=== PATIENT | female | born 1955 | race Caucasian/White ===

== ENCOUNTER 2020-07-29 15:33 | Outpatient (REF) | payer OTHER, SELFPAY ==
--- NOTE | ~2020-07-29 | US_ITS ---
EXAMINATION: US THYROID CLINICAL INFORMATION: Nontoxic single thyroid nodule. COMPARISON: Ultrasound soft tissue head/neck thyroid dated 01/03/2016 and 11/10/2013. TECHNIQUE: Linear transducer grayscale and color Doppler examination with attention to the region of the thyroid. FINDINGS: SIZE: Measurements of the thyroid lobes and nodules are given in sagittal, anteroposterior and transverse dimensions respectively. Right Thyroid Lobe: 4.4 x 1.6 x 1.5 cm, volume 5.6 mL. Previously 4.2 x 1.4 x 1.5 cm, volume 4.4 mL. Parenchyma: The gland echotexture is heterogeneous. Thyroid vascularity is increased. Left Thyroid Lobe: 4.9 x 2.0 x 1.4 cm, volume 7.0 mL. Previously 4.4 x 1.7 x 1.3 cm, volume 5.3 mL. Parenchyma: The gland echotexture is heterogeneous. Thyroid vascularity is increased. Isthmus: 0.2 cm in maximum AP dimension. Previously 0.2 cm. Estimated total number of nodules greater than or equal to 1 cm: 0. Rejoiner nodules are described as follows: 1. Location: Left mid. Size: 0.6 x 0.6 x 0.4 cm, volume 0.08 mL. Previously: 0.6 x 0.6 x 0.6 cm, volume 0.11 mL. Nodule characteristics: Composition: Cannot be determined (2). Echogenicity: Cannot be determined (1). Shape: Not taller than wide (0). Margins: Smooth (0). Echogenic Foci: Macrocalcifications (1). ACR TI-RADS total points: 4 ACR TI-RADS category: 4 Change in size: no significant change. ACR TI-RADS category: no change. 2. Location: Left mid. Size: 0.5 x 0.6 x 0.6 cm, volume 0.09 mL. Previously: Not seen on the prior study. Nodule characteristics: Composition: Solid/almost completely solid (2). Echogenicity: Isoechoic (1). Shape: Not taller than wide (0). Margins: Smooth (0). Echogenic Foci: None (0). ACR TI-RADS total points: 3 ACR TI-RADS category: 3 NODES: No lymphadenopathy is seen in the tissue surrounding the thyroid gland. US/US thyroid IMPRESSION: 1. Symmetric increased vascularity thyroid parenchyma. 2. Left: Stable nodule with macrocalcification 0.6 cm. New isoechoic nodule 0.6 cm. 3. Right: No nodularity. 4. ACR TI-RADS 4 ACR TI-RADS RECOMMENDATION REFERENCE: Ultrasound-guided fine-needle aspiration, followup ultrasound, no further follow up. * TR1 (0 point) and TR 2 (2 points): No FNA or follow up * TR3 (3 points): FNA if more than or equal to 2.5 cm in maximum dimension, followup ultrasound in 1, 3 and 5 years if 1.5 to 2.4 cm in maximum dimension. * TR4 (4-6 points): FNA if more than or equal to 1.5 cm in maximum dimension, followup ultrasound in 1, 2, 3 and 5 years if 1 to 1.4 cm in maximum dimension. * TR5 (more than or equal to 7 points): FNA if more than or equal to 1 cm in maximum dimension, followup ultrasound every year for 5 years if 0.5 to 0.9 cm in maximum dimension. * TR3, TR4 or TR5 nodules that are below the size threshold for follow up receive no follow up.
== END 2020-07-29 15:34 | disposition home or self-care (01) ==
LOC: HO.HMGCX 15:33
PROVIDERS: Visit Provider Internal Medicine
DX: E04.1 Nontoxic single thyroid nodule (principal)
CPT/HCPCS: 76536

== ENCOUNTER 2021-05-16 10:04 | Outpatient (REF) | payer OTHER, SELFPAY ==
--- NOTE | ~2021-05-16 | US_ITS ---
EXAMINATION: US THYROID CLINICAL INFORMATION: Nontoxic single thyroid nodule. COMPARISON: Ultrasound thyroid 07/29/2020 and 01/03/2016. TECHNIQUE: Linear transducer grayscale and color Doppler examination with attention to the region of the thyroid. FINDINGS: SIZE: Measurements of the thyroid lobes and nodules are given in sagittal, anteroposterior and transverse dimensions respectively. Right Thyroid Lobe: 4.38 x 1.62 x 1.49 cm, volume 5.55 mL. Previously 4.42 x 1.63 x 1.47 cm, volume 5.55 mL. Parenchyma: The gland echotexture is heterogeneous. Thyroid vascularity is increased. Left Thyroid Lobe: 4.59 x 2.00 x 1.78 cm, volume 8.57 mL. Previously 4.85 x 1.95 x 1.41 cm, volume 6.97 mL. Parenchyma: The gland echotexture is heterogeneous. Thyroid vascularity is increased. Isthmus: 0.13 cm in maximum AP dimension. Previously 0.18 cm. Estimated total number of nodules greater than or equal to 1 cm: 0. [employer] nodules are described as follows: 1. Location: Right superior. Size: 0.50 x 0.40 x 0.37 cm, volume 0.04 mL. Previously: cm, volume mL. Nodule characteristics: Composition: Cannot be determined (2). Echogenicity: Hyperechoic (1). Shape: Not taller than wide (0). Margins: Smooth (0). Echogenic Foci: None (0). ACR TI-RADS total points: 3 Previous: N/A ACR TI-RADS category: 3 Previous: N/A Significant change in size (>/= 20% in 2 dimensions and minimal increase of 2 mm or 50% or greater increase in volume): Change in features: Change in ACR TI-RADS risk category: N/A 2. Location: Left superior. Size: 0.54 x 0.45 x 0.53 cm, volume 0.07 mL. Previously: 0.60 x 0.60 x 0.40 cm, volume 0.08 mL. Nodule characteristics: Composition: Cannot be determined (2). Echogenicity: Cannot be determined (1). Shape: Not taller than wide (0). Margins: Smooth (0). Echogenic Foci: Peripheral calcifications (2). ACR TI-RADS total points: 5 Previous: 4 ACR TI-RADS category: 4 Previous: 4 Significant change in size (>/= 20% in 2 dimensions and minimal increase of 2 mm or 50% or greater increase in volume): Change in features: Change in ACR TI-RADS risk category: No 3. Location: Left mid. Size: 0.30 x 0.24 x 0.20 cm, volume 0.01 mL. Not seen previously. Nodule characteristics: Composition: Cystic(0). ACR TI-RADS total points: 0 ACR TI-RADS category: 1 4. Location: Left mid. Size: 0.82 x 0.49 x 0.58 cm, volume 0.12 mL. Not seen previously. Nodule characteristics: Composition: Spongiform (0). Echogenicity: Anechoic (0). Shape: Not taller than wide (0). Margins: Smooth (0). Echogenic Foci: None (0). ACR TI-RADS total points: 0 ACR TI-RADS category: 1 NODES: No lymphadenopathy is seen in the tissue surrounding the thyroid gland. US/US thyroid IMPRESSION: Heterogeneous hypervascular thyroid gland suggestive of thyroiditis or Graves' disease. There is mixed appearance of thyroid nodules with several new thyroid nodules seen and 1 previously identified thyroid nodule not seen. There is a stable small calcified nodule in the superior left lobe. ACR TI-RADS RECOMMENDATION REFERENCE: Ultrasound-guided fine-needle aspiration, followup ultrasound, no further follow up. * TR1 (0 point) and TR 2 (2 points): No FNA or follow up * TR3 (3 points): FNA if more than or equal to 2.5 cm in maximum dimension, followup ultrasound in 1, 3 and 5 years if 1.5 to 2.4 cm in maximum dimension. * TR4 (4-6 points): FNA if more than or equal to 1.5 cm in maximum dimension, followup ultrasound in 1, 2, 3 and 5 years if 1 to 1.4 cm in maximum dimension. * TR5 (more than or equal to 7 points): FNA if more than or equal to 1 cm in maximum dimension, followup ultrasound every year for 5 years if 0.5 to 0.9 cm in maximum dimension. * TR3, TR4 or TR5 nodules that are below the size threshold for follow up receive no follow up.
== END 2021-05-16 10:05 | disposition home or self-care (01) ==
LOC: HO.HMGCX 10:04
PROVIDERS: PCP Internal Medicine; Visit Provider Internal Medicine
DX: E04.1 Nontoxic single thyroid nodule (principal)
CPT/HCPCS: 76536

== ENCOUNTER 2021-07-15 13:32 | Outpatient (REF) | payer OTHER, SELFPAY ==
--- NOTE | ~2021-07-15 | MM_ITS ---
EXAMINATION: BONE DENSITOMETRY CLINICAL INDICATION: Other specified disorders of bone density and structure. COMPARISON: Previous BD dated 09/18/2018 and baseline BD dated 08/04/2009. TECHNIQUE: Using a [employer] DXA System (software version: 13.1) manufactured by [employer], dual-energy x-ray absorptiometry was performed of the lumbar spine and left hip. The images are of good technical quality. Summary results are attached. FINDINGS: AP SPINE L1-L4: Current: BMD 0.914 g/cm2, Z-score -0.4, T-score -2.2, osteopenia, 0.6% increase from previous, 9.5% decrease from baseline (<5% change is not significant). Prior: BMD 0.909 g/cm2. Baseline: BMD 1.010 g/cm2. LEFT FEMUR, NECK: Current: BMD 0.743 g/cm2, Z-score -0.5, T-score -2.1, osteopenia. Prior: BMD 0.710 g/cm2. Baseline: BMD 0.815 g/cm2. LEFT FEMUR, TOTAL: Current: BMD 0.755 g/cm2, Z-score -0.7, T-score -2.0, osteopenia, 2.1% decrease from previous, 9.7% decrease from baseline (<5% change is not significant). Prior: BMD 0.771 g/cm2. Baseline: BMD 0.836 g/cm2. IDENTIFIED RISK FACTORS: Osteoporosis, menopause. HISTORY OF FRACTURE: None listed. MEDICATIONS: Calcium supplements or multivitamin, vitamin D. MM/XR DEXA axial skeleton IMPRESSION: 1. DIAGNOSIS: Osteopenia based on the lowest T-score value of -2.2 in the lumbar spine applying World Health Organization criteria. 2. 10-YEAR FRACTURE RISK PREDICTION, FRAX: Major osteoporotic fracture (clinical spine, forearm, hip or shoulder) 10.9%. Hip fracture 1.8%. 3. Treatment Recommendations: NOF guidelines recommend consideration for treatment in postmenopausal women and men age 50 and older presenting with the following: -A hip or vertebral (clinical or morphometric) fracture. -T-score less than or equal to -2.5 at the femoral neck or spine after appropriate evaluation to exclude secondary causes. -Low bone mass at the hip or spine and a 10-year fracture probability by FRAX of greater than or equal to 3% for hip fracture or greater than or equal to 20% for major osteoporotic fracture based on the [place] adapted WHO algorithm. 4. Other Recommendations: All treatment decisions require clinical judgment and consideration of individual patient factors, including patient preferences, comorbidities, previous drug use, risk factors not captured in the FRAX model (e.g. frailty, falls, vitamin D deficiency, increased bone turnover, interval significant decline in bone density) and possible under or overestimation of fracture risk by FRAX. Additional medical evaluation for secondary cause of low bone mineral density may be appropriate. FUTURE SCAN RECOMMENDATION: People with diagnosed cases of osteoporosis or at high risk for fracture should have regular bone mineral density tests. For patients eligible for Medicare, routine testing is allowed once every 2 years. The testing frequency can be increased to one year for patients who have rapidly progressing disease, those who are receiving or discontinuing medical therapy to restore bone mass, or have additional risk factors.
--- NOTE | ~2021-07-15 | MM_ITS ---
EXAMINATION: MM SCREENING DIGITAL BREAST TOMOSYNTHESIS, BILATERAL CLINICAL INFORMATION: Screening. Asymptomatic. The lifetime risk of breast cancer based on the Tyrer-Cuzick Model is 4%. COMPARISON: Mammography: 09/18/2018, 09/17/2015 TECHNIQUE: Digital breast tomosynthesis is performed in both the craniocaudal and mediolateral oblique views along with computer-aided detection (CAD). Synthesized 2D images are generated from the tomosynthesis. FINDINGS: There are scattered areas of fibroglandular density (ACR BI-RADS breast composition Category b). There are no significant masses, abnormal calcifications, or other abnormalities. Parenchymal pattern is similar to prior studies. There is no developing density or architectural abnormality. The axilla and skin contours are unremarkable. No significant changes. MM/MM tomosynthesis screening BI IMPRESSION: No mammographic evidence of malignancy. ASSESSMENT: BI-RADS 1: Negative RECOMMENDATION: Routine annual mammography screening. This patient's information was entered into a reminder system with a target due date for their next mammogram.
== END 2021-07-15 13:33 | disposition home or self-care (01) ==
LOC: HO.MAMMO 13:32
PROVIDERS: PCP Internal Medicine; Visit Provider Internal Medicine
DX: Z12.31 Encounter for screening mammogram for malignant neoplasm of breast (principal); Z13.820 Encounter for screening for osteoporosis; M85.88 Other specified disorders of bone density and structure, other site; Z78.0 Asymptomatic menopausal state
CPT/HCPCS: 77063; 77067; 77080

== ENCOUNTER 2022-06-23 06:35 | Outpatient (REF) | payer OTHER, SELFPAY ==
[2022-06-23 11:25] LABS: Appearance Urine Turbid; Color Urine Yellow; Glucose Urine UA Negative (Negative); Leukocyte Esterase Urine Small (1+) (Negative); Nitrite Urine Negative (Negative); PH 6.5 (5.0-9.0); UMIC TRIGGER UA YES; Urine Blood Negative (Negative); Urine Ketones Trace mg/dL (Negative); Urine Protein Trace mg/dL (Neg-Trace)
[2022-06-23 11:35] LABS: Bacteria Urine None Seen (None Seen); Hyaline Casts Urine 0-2 /LPF (0-2); WBC Urine 0-5 /HPF (0-5)
[2022-06-23 11:43] LABS: MANUAL DIFF FLAG NO
[2022-06-23 12:03] LABS: Basophils Percent Auto 0.8 % (0-2); Eosinophils Absolute Auto 0.1 X10*3/uL (0.0-0.4); Eosinophils Percent Auto 1.3 % (0-4); Hematocrit 42.9 % (37.0-47.0); Hemoglobin 14.1 g/dl (12.0-16.0); Imm Gran Abs Auto 0.02 X10*3/uL (0.00-0.03); Imm Gran Pct Auto 0.4 % (0.0-0.4); Lymphocytes Absolute Auto 1.5 X10*3/uL (1.2-4.9); Mean Corpuscular HGB Conc 32.9 g/dl (31.0-35.0); Mean Corpuscular Hemoglobin 28.8 pg (27.0-33.0); Mean Corpuscular Volume 87.7 fL (80.0-98.0); Mean Platelet Volume 9.1 fL (9.4-12.3); Monocytes Absolute Auto 0.4 X10*3/uL (0.1-1.2); Monocytes Percent Auto 7.9 % (2-11); Neutrophils Absolute Auto 2.8 x10*3/uL (2.0-8.3); Neutrophils Percent Auto 57.6 % (45-73); Platelet Count 345 X10*3/uL (160-400); Red Blood Count 4.89 X10*6/uL (4.20-5.50); Red Cell Distribution Width 13.3 % (11.0-16.0); White Blood Count 4.8 X10*3/uL (4.8-10.8)
[2022-06-23 12:13] LABS: Estimated Average Glucose 105 mg/dL; Hemoglobin A1c % 5.3 %
[2022-06-23 12:34] LABS: Alanine Aminotransferase 14 U/L (0-31); Albumin Level 4.2 g/dL (3.5-5.0); Alkaline Phosphatase 81 U/L (39-117); Anion Gap 13 (12-20); Aspartate Amino Transferase 18 U/L (5-31); Bilirubin Total 0.9 mg/dL (0.0-1.0); Blood Urea Nitrogen 15 mg/dL (9-16); Calcium 9.5 mg/dL (8.4-10.2); Carbon Dioxide 27 mmol/L (22-29); Chloride 106 mmol/L (96-108); Cholesterol 280 mg/dL; Estimated Glomerular Filt Rate > 60; Glucose Random 92 mg/dL (60-115); HDL Cholesterol 39 mg/dL; LDL Cholesterol Calculated 213 mg/dl; Potassium 4.4 mmol/L (3.3-5.1); Sodium 142 mmol/L (135-145); Total Protein 7.2 g/dL (6.5-8.0); Triglycerides 141 mg/dL
[2022-06-23 12:47] LABS: Folate 13.9 ng/mL (> or = 4.0); Free T4 (Free Thyroxine) 0.94 ng/dL (0.71-1.85); Thyroid Stimulating Hormone 3.24 uIU/mL (0.32-4.0); Vitamin B12 1257 pg/mL (200-900); Vitamin D 25-OH Total 35.9 ng/mL (>30)
== END 2022-06-23 06:36 | disposition home or self-care (01) ==
LOC: HO.HMGCLDS 06:35
PROVIDERS: PCP Internal Medicine; Visit Provider Internal Medicine
DX: R73.02 Impaired glucose tolerance (oral) (principal); E78.00 Pure hypercholesterolemia, unspecified
CPT/HCPCS: 36415; 80053; 80061; 81001; 82306; 82607; 82746; 83036; 84439; 84443; 85025

== ENCOUNTER 2022-07-17 09:42 | Outpatient (REF) | payer OTHER, SELFPAY ==
--- NOTE | ~2022-07-17 | MM_ITS ---
EXAMINATION: MM SCREENING DIGITAL BREAST TOMOSYNTHESIS, BILATERAL CLINICAL INFORMATION: Screening. Asymptomatic. The lifetime risk of breast cancer based on the Tyrer-Cuzick Model is 4%. COMPARISON: Mammography: 07/15/2021, 09/18/2018, 09/17/2015 TECHNIQUE: Digital breast tomosynthesis is performed in both the craniocaudal and mediolateral oblique views along with computer-aided detection (CAD). Synthesized 2D images are generated from the tomosynthesis. FINDINGS: There are scattered areas of fibroglandular density (ACR BI-RADS breast composition Category b). Fibronodular parenchymal pattern is similar to prior exams. No significant mass, architectural abnormality, or developing density. No abnormal calcifications. The axilla and skin contours are unremarkable. No significant changes. MM/MM tomosynthesis screening BI IMPRESSION: No mammographic evidence of malignancy. ASSESSMENT: BI-RADS 1: Negative RECOMMENDATION: Routine annual mammography screening. This patient's information was entered into a reminder system with a target due date for their next mammogram.
== END 2022-07-17 09:43 | disposition home or self-care (01) ==
LOC: HO.MAMMO 09:42
PROVIDERS: Visit Provider Internal Medicine
DX: Z12.31 Encounter for screening mammogram for malignant neoplasm of breast (principal)
CPT/HCPCS: 77063; 77067

== ENCOUNTER 2022-09-29 07:35 | Day surgery (SDC) | payer OTHER, SELFPAY ==
--- NOTE | 2022-09-28 08:42 | HO.ANESPROP2 ---
Documented by User: Toshia Rivera NP 09/28/22 08:42 HPI - Anesthesia Eval Consult details Narrative: 67yo F for Upper Endoscopy PMFSH Active Problems Active Problems: All Active Problems (Updated 07/28/22 @ 16:22 by Pam Harrington MD) Renal calculi (Acute) COVID-19 virus infection (Acute) Breast cancer screening (Acute) Osteopenia (Acute) Generalized anxiety disorder (Acute) Thyroid nodule (Acute) Annual physical exam (Acute) Impaired glucose tolerance (Acute) GERD (gastroesophageal reflux disease) (Acute) Hypercholesterolemia (Acute) Past Medical History Medical History GERD (gastroesophageal reflux disease) Hypercholesterolemia Impaired glucose tolerance Osteoporosis Renal calculi Thyroid nodule Urge incontinence Vitamin B12 deficiency Vitamin D deficiency Family History Family History Father Myocardial infarction Son Substance abuse Brother Heart problem Surgical History Surgical History H/O exploratory laparotomy History of section Social History Social History Housing: House Alcohol intake: current Alcohol intake frequency: holidays/special occasions only Patient Tobacco Use Status: Former Tobacco user Tobacco use type: Cigarette Years Smoked: stopped 20+ years old e-Cigarette/Vaping Use: Never Used Second Hand Smoke Exposure: No Use of substances other than those prescribed or required for medical reasons: No Are you DNR?: No Advance Directives: No Advance Directives Information Provided: Yes Recently lost weight without trying: No Nutrition Risks: No Nutritional Risk Current occupational status: employed Cognitive needs: No Hearing needs: No Vision needs: Yes Meds Allergies Allergy/AdvReac Type Severity Reaction Status Date / Time bupropion [From Wellbutrin] Allergy Unknown Hives, Verified 07/28/22 16:00 Rash, Dysphagia Home Medications Medication Instructions Recorded Confirmed Last Taken Type famotidine 20 mg tablet (Pepcid) 20 mg PO DAILY 04/15/20 04/21/22 Unknown History fluoxetine 20 mg capsule 20 mg PO DAILY 04/15/20 04/21/22 Unknown History Exam Exam Date and Time: September 28, 2022 0842 Pertinent Lab Results Pertinent Lab Results: Laboratory Tests 06/23/22 06/23/22 06:42 06:42 WBC 4.8 Hgb 14.1 Hct 42.9 Plt Count 345 Sodium 142 Potassium 4.4 Chloride 106 Carbon Dioxide 27 BUN 15 Creatinine 0.81 Assessment and Plan Assessment Anesthesia Assessment: Chart Reviewed Documented by User: Alannah Ramos MD 09/29/22 08:41 PMFSH Past Medical History Medical History GERD (gastroesophageal reflux disease) Hypercholesterolemia Impaired glucose tolerance Osteoporosis Renal calculi Thyroid nodule Urge incontinence Vitamin B12 deficiency Vitamin D deficiency Family History Family History Father Myocardial infarction Son Substance abuse Brother Heart problem Surgical History Surgical History H/O exploratory laparotomy History of section History of Problems with Anesthesia: No Social History Social History Housing: House Alcohol intake: current Alcohol intake frequency: holidays/special occasions only Patient Tobacco Use Status: Former Tobacco user Tobacco use type: Cigarette Years Smoked: stopped 20+ years old e-Cigarette/Vaping Use: Never Used Second Hand Smoke Exposure: No Use of substances other than those prescribed or required for medical reasons: No Are you DNR?: No Advance Directives: No Advance Directives Information Provided: Yes Recently lost weight without trying: No Nutrition Risks: No Nutritional Risk Current occupational status: employed Cognitive needs: No Hearing needs: No Vision needs: Yes Meds Allergies Allergy/AdvReac Type Severity Reaction Status Date / Time bupropion [From Wellbutrin] Allergy Unknown Hives, Verified 07/28/22 16:00 Rash, Dysphagia Home Medications Medication Instructions Recorded Confirmed Last Taken Type famotidine 20 mg tablet (Pepcid) 20 mg PO DAILY 04/15/20 04/21/22 Unknown History fluoxetine 20 mg capsule 20 mg PO DAILY 04/15/20 04/21/22 Unknown History Exam Airway Mallampati Class: III (receding chin) TM Dist: >3cm Neck ROM: Full Loose/Missing/Broken Teeth: No Heart: RRR Lungs: CTA Assessment and Plan Assessment Anesthesia Assessment: Anesthesia Plan Discussed Final Anesthetic Review History of Problems with Anesthesia: No NPO: Yes ASA Class: II Final Preanesthetic Review: Meds/Allgs Chart Reviewed, Consent Obtained/Reviewed and Anes Risks/Benef Reviewed Patient Risk: Low Procedure Risk: Intermediate Anesthetic Plan Anesthetic Plan: MAC: Disposition: Standard PACU
[2022-09-29 07:45] VITALS: BMI 22.5
[2022-09-29 07:51] VITALS: BP 112/62; PULSE 81; RESP 16; TEMP 36.5; O2SAT 96
[2022-09-29] MEDS: Lactated Ringers 1,000 ML 100 ML IVCONT (08:03)
--- NOTE | 2022-09-29 08:38 | MHC.SHP ---
Pre-Procedural Eval Section A Date of Service: 09/29/22 Section B Chief Complaint: Other dysphagia,reflux Details of Present Illness: see H&P no changes Relevant Family History (Specify if Yes): No Relevant Social History: None Present Medications: see Short Stay [facility] assessment Medical History: No relevant PMH History of Previous Operations: No relevant previous surgery Allergies: Allergies Allergy/AdvReac Type Severity Reaction Status Date / Time bupropion [From Wellbutrin] Allergy Unknown Hives, Verified 07/28/22 16:00 Rash, Dysphagia Review of Systems Sugical H&P ROS: Negative: Constitution, Cardiovascular, Respiratory, Neurological, Psychiatric, Hem-Onc, Allergic/Immunologic, Gastrointestinal, Genitourinary, Musculoskeletal, Integumentary, Endocrine and Eyes/Ears/Nose/Throat Exam Surgical H&P Exam: Normal: HEENT, Normal: Heart, Normal: Lungs, Normal: Extremities, Normal: Abdomen, Normal: Skin and Normal: Neurological Plan Diagnosis/Plan: Unchanged I have reviewed the history and physical and performed a pertinent physical examination on my patient. No changes have occurred unless specified. Time Spent With Patient Time: Total time managing care of this patient today ____ minutes.
[2022-09-29 09:05] VITALS: BP 84/40; PULSE 71; RESP 18; TEMP 36.1; O2SAT 95
--- NOTE | 2022-09-29 09:08 | P.BOP_ITS ---
Brief Operative Note Date of Service: 09/29/22 Pre-op diagnosis: gerd Post-op diagnosis: same Procedure: egd Surgeon: Jake Ruelas Anesthesia: MAC Was an [employer] Element Winder Machine used for this Procedure?: No Estimated blood loss (mL): 2 Pathology: other Condition: stable Disposition: PACU
[2022-09-29 09:10] VITALS: BP 91/46; PULSE 70; RESP 16; O2SAT 94
[2022-09-29 09:20] VITALS: BP 103/52; PULSE 83; RESP 14; O2SAT 97
[2022-09-29 09:25] VITALS: BP 105/52; PULSE 71; RESP 15; TEMP 36.4; O2SAT 98
--- NOTE | 2022-09-29 09:40 | OP_ITS ---
DATE OF SERVICE: 09/29/2022 SURGEON: Jake Ruelas MD INDICATIONS: Gastroesophageal reflux disease. PREOPERATIVE DIAGNOSIS: POSTOPERATIVE DIAGNOSIS: PROCEDURE PERFORMED: Upper endoscopy with biopsy. ESTIMATED BLOOD LOSS: COMPLICATIONS: ANESTHESIA: Monitored anesthesia care. ASSISTANTS: SPECIMENS: DESCRIPTION OF PROCEDURE: A history and physical was performed. The risks and benefits of the procedure were explained to the patient. Informed consent was obtained. The patient was placed in the left lateral decubitus position. The Olympus video gastroscope was introduced into the esophagus, stomach, and duodenum. Examination was performed. The scope was removed. She tolerated the procedure well and was taken to recovery area in stable condition. FINDINGS: Esophagus: The esophagus was normal. There was an irregular EG junction. This was biopsied. There were no esophagitis and no evidence of Glez esophagus. Stomach: The stomach was normal. Antral biopsies were obtained to evaluate for H pylori. Duodenum: The bulb and 2nd portion were normal. IMPRESSION: Gastroesophageal reflux disease. RECOMMENDATION: Follow up the biopsy results. MD YOGI Sood/JANL / [id number]
== END 2022-09-29 09:55 | disposition home or self-care (01) ==
PROVIDERS: PCP Internal Medicine; Visit Provider Internal Medicine Gastroenterology
PROC: 0DJ08ZZ Inspection of Upper Intestinal Tract, Via Natural or Artificial Opening Endoscopic (ICD-10-PCS; CPT 43235; principal; 2022-09-29 08:40)
DX: K21.9 Gastro-esophageal reflux disease without esophagitis (principal); R13.19 Other dysphagia; K29.50 Unspecified chronic gastritis without bleeding; E78.00 Pure hypercholesterolemia, unspecified; F32.A Depression, unspecified; Z79.899 Other long term (current) drug therapy; Z88.8 Allergy status to other drugs, medicaments and biological substances; Z87.891 Personal history of nicotine dependence
CPT/HCPCS: 43239; 88305; 88342

== ENCOUNTER 2022-10-27 06:12 | Outpatient (REF) | payer OTHER, SELFPAY ==
[2022-10-27 12:33] LABS: Alanine Aminotransferase 22 U/L (0-31); Albumin Level 4.1 g/dL (3.5-5.0); Alkaline Phosphatase 80 U/L (39-117); Anion Gap 13 (12-20); Aspartate Amino Transferase 23 U/L (5-31); Bilirubin Total 0.5 mg/dL (0.0-1.0); Blood Urea Nitrogen 18 mg/dL (9-16); Carbon Dioxide 26 mmol/L (22-29); Chloride 107 mmol/L (96-108); Cholesterol 184 mg/dL; Estimated Glomerular Filt Rate > 60; Glucose Random 85 mg/dL (60-115); HDL Cholesterol 38 mg/dL; LDL Cholesterol Calculated 118 mg/dl; Potassium 4.4 mmol/L (3.3-5.1); Sodium 142 mmol/L (135-145); Total Protein 7.1 g/dL (6.5-8.0); Triglycerides 143 mg/dL
== END 2022-10-27 06:13 | disposition home or self-care (01) ==
LOC: HO.HMGCLDS 06:12
PROVIDERS: PCP Internal Medicine; Visit Provider Internal Medicine
DX: E78.00 Pure hypercholesterolemia, unspecified (principal)
CPT/HCPCS: 36415; 80053; 80061

== ENCOUNTER 2023-04-27 16:12 | Outpatient (AMB) | payer OTHER, SELFPAY ==
[2023-04-27 16:13] VITALS: BP 128/70; PULSE 77; O2SAT 99; BMI 23.4
--- NOTE | 2023-04-27 16:13 | A.OFFPC_ITS ---
Vital Signs 04/27/23 16:13 Height 5 ft 1 in Weight 124 lb 0.8 oz BMI 23.4 BP 128/70 Blood Pressure Location Lt brachial Position Sitting Pulse 77 Pulse Source Pulse Oximeter Pulse Oximetry (%) 99 Oxygen Delivery Method Room Air Intake Visit Reasons: PE Day Care Teacher Required: No Allergies bupropion [From Wellbutrin] Allergy (Unknown, Verified 04/27/23 16:13) Hives, Rash, Dysphagia Medication List - Last Reconciled 04/27/23 by Pam Harrington MD famotidine (Pepcid) 20 mg PO DAILY fluoxetine 20 mg PO DAILY simvastatin 10 mg PO BEDTIME 90 days Tobacco use date assessed: 04/27/23 Fall risk assessment: No Falls in past year Last assessed Fall Risk: 04/27/23 Dental Screening Dental Screen Date: 04/27/23 Did you have a dental visit in the last 12 months?: Yes Did you have a dental problem in the last 6 months where you did not have access to dental care?: No Was dental information given to patient?: Patient has dentist HPI PE HPI Details 68-year-old female with GERD hypercholes terolemia impaired glucose tolerance and generalized anxiety disorder last seen in October 2022. Patient's mammogram is up-to-date bone density is up-to-date colonoscopy up-to-date. CAtaract Surgery Jun 20, 2023 R eye. difficulty in maitaining sleep and tinnitus PFSH Medical History (Updated 04/27/23 @ 16:49 by Pam Harrington MD) Breast cancer screening Osteopenia Urge incontinence Renal calculi Thyroid nodule Impaired glucose tolerance Vitamin B12 deficiency Vitamin D deficiency GERD (gastroesophageal reflux disease) Hypercholesterolemia Osteoporosis Surgical History H/O exploratory laparotomy History of section Family History (Updated 11/02/22 @ 15:54 by Cydney Martinez CMA) Father Myocardial infarction Son Substance abuse Brother Heart problem Social History (Updated 04/27/23 @ 16:32 by Pam Harrington MD) Housing: House Alcohol intake: current Alcohol intake frequency: holidays/special occasions only Comment: holidays 1-2 drinks Patient Tobacco Use Status: Former Tobacco user Tobacco use type: Cigarette Years Smoked: stopped 20+ years old e-Cigarette/Vaping Use: Never Used Second Hand Smoke Exposure: No Current occupational status: employed Cognitive needs: No Hearing needs: No Vision needs: Yes Questionnaire PHQ-9 Over the last 2 weeks, how often have you been bothered by any of the following problems? 1. Little interest or pleasure in doing things: not at all 2. Feeling down, depressed, or hopeless: not at all 3. Trouble falling or staying asleep, or sleeping too much: not at all 4. Feeling tired or having little energy: not at all 5. Poor appetite or overeating: not at all 6. Feeling bad about yourself - or that you are a failure or have let yourself or your family down: not at all 7. Trouble concentrating on things, such as reading the newspaper or watching television: not at all 8. Moving or speaking so slowly that other people could have noticed. Or the opposite - being so fidgety or restless that you have been moving around a lot more than usual: not at all 9. Thoughts that you would be better off or of hurting yourself in some way: not at all Total score: 0 Depression Screening Interpretation: Negative Depression Screening Done: Yes Source: Developed by Drs. Dani Lee, Nelly Sierra, Zachary Saleem and colleagues, with an educational joleen from [employer]. Thrive Questionnaire Date Thrive assessed: 07/28/22 AUDIT C Alcohol Use Questionnaire (AUDIT-C) 1. How often do you have a drink containing alcohol?: 2-4 times a month 2. How many drinks containing alcohol do you have on a typical day when you are drinking?: 1 or 2 3. How often do you have six or more drinks on one occasion?: Never Total Score: 2 JOANNE-7 AMB Questionnaire JOANNE-7 Date JOANNE - 7 assessed: 04/27/23 Feeling nervous, anxious, or on edge: 0 = Not at all Not being able to stop or control worryin = Not at all Worrying too much about different things: 0 = Not at all Trouble relaxin = Not at all Being so restless that it is hard to sit still: 0 = Not at all Becoming easily annoyed or irritable: 0 = Not at all Feeling afraid as if something awful might happen: 0 = Not at all Total JOANNE-7 score (0-4 normal; 5-9 mild; 10-14 moderate; 15-21 severe): 0 Source: Developed by Drs. Dani Lee, Nelly Sierra, Zachary Saleem and colleagues, with an educational joleen from [employer]. Review of Systems Const Denies poor appetite and Denies weakness Eyes Denies no additional complaints ENT Reports Normal hearing present, Denies dizziness, Denies nasal congestion, Denies tinnitus and Denies sore throat Card Denies chest pain, Denies syncope, Denies rapid heart rate and Denies dyspnea Resp Denies cough and Denies dyspnea GI Denies change in stool character, Reports constipation, Denies diarrhea, Denies nausea and Denies vomiting Denies urinary frequency, Denies difficulty voiding and Denies dysuria Neuro Reports Normal hearing present, Denies confusion, Denies dizziness, Denies syncope and Denies weakness Psych Denies confusion Physical exam (Primary Care) Vital Signs: Last Vital Signs Pulse 77 04/27/23 16:13 BP 128/70 04/27/23 16:13 Pulse Ox 99 04/27/23 16:13 Oxygen Delivery Method Room Air 04/27/23 16:13 BMI result Body Mass Index 23.4 Tobacco/Smoking Status: Tobacco use Status Tobacco use date assessed 04/27/23 04/27/23 16:18 Patient Tobacco Use Status Former Tobacco user 04/27/23 16:32 Tobacco use type Cigarette 04/27/23 16:32 e-Cigarette/Vaping Use Never Used 04/27/23 16:32 PHQ-9: PHQ-9 Score PHQ-9: Total score 0 04/27/23 16:26 Depression Screening Interpretation: Negative Thrive Assessment: Date of Thrive Assessment Date Thrive assessed 07/28/22 04/27/23 16:18 Const General: No confusion Orientation/consciousness: No confusion HENMT Head: Yes normocephalic Ears: external ears normal and TM's normal bilaterally Face and sinus: Yes normal facial exam Mouth: moist mucous membranes Throat: Yes tonsils normal Eyes Conjunctivae: conjunctivae normal Pupils: Equal, round and reactive pupils present and Pupil accommodation reflex normal Direct Ophthalmoscopy: normal light reflex Neck Neck: No lymphadenopathy Thyroid: Thyroid normal Chest Chest palpation & inspection: normal inspection of the chest Resp Effort & Inspection: normal respiratory effort and no audible wheezes Auscultation: clear to auscultation bilaterally, no crackles, no wheezes and lung sounds not diminished Cardio Rate: regular rate Rhythm: regular rhythm Peripheral pulses: radial pulses present and dorsalis pedis present GI Other: guaiac negative stools Palpation (GI): no masses Auscultation: normal bowel sounds and normoactive bowel sounds Rectal Exam - Female: deferred Skin General skin exam: no rashes or lesions noted Rashes: no rashes Neuro General: No confusion Cranial nerves: Yes Equal, round and reactive pupils present and Yes Normal hearing present Cognition (Neuro): normal cognition Gait exam (Neuro): Normal gait present Motor exam (neuro): 5/5 motor strength present throughout Deep tendon reflexes (DTR's): Right brachioradialis reflex intensity grade: 2+, Left brachioradialis reflex intensity grade: 2+, Right patellar reflex intensity grade: 2+ and Left patellar reflex intensity grade: 2+ Extrem General: No edema Immunizations pneumoc 20-noris conj-dip cr(PF) 0.5 mL IM syringe Performing Provider: Pam Harrington MD Performing Location: [facility] [place] [facility] Administered by: Cydney Martinez CMA on 04/27/23 16:54 Dose Route Admin Location Dispensed Lot Number Expiration Date NDC 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 Be it pork or beef they have a lot of cholesterol October 2022 last blood work LDL goal of less than 130 and triglyceride of less than 150. Patient on simvastatin 10 mg at bedtime (3) GERD (gastroesophageal reflux disease): Code(s): K21.9 - Gastro-esophageal reflux disease without esophagitis Qualifiers: Esophagitis presence: without esophagitis Qualified Code(s): K21.9 - Gastro-esophageal reflux disease without esophagitis Plan: Avoid the foods that causes that usually spicy foods, tomato products, juices, coffee, soda and foods that your sensitive to. After eating do not lie down, allow 3-4 hours before in lie down. And keep the head of bed above 30 degrees to avoid the acid from going up. (4) Impaired glucose tolerance: Code(s): R73.02 - Impaired glucose tolerance (oral) Plan: Decrease the amount of carbohydrate intake, pasta, bread, rice and potatoes are all sugar and that is aside from all the sweet stuff, remember that fruits are good but they are Sweet also. (5) Generalized anxiety disorder: Comment: Follows up with the therapist(private) Code(s): F41.1 - Generalized anxiety disorder Plan: Continue with present medication (6) Cataract: Code(s): H26.9 - Unspecified cataract Plan: CAtaract surgery June 20, 2022 (7) Insomnia: Code(s): G47.00 - Insomnia, unspecified Qualifiers: Insomnia type: primary Qualified Code(s): F51.01 - Primary insomnia Plan: discussed about treatment options (8) Tinnitus: Code(s): H93.19 - Tinnitus, unspecified ear Qualifiers: Laterality: bilateral Qualified Code(s): H93.13 - Tinnitus, bilateral Plan: hearing test requested Orders: Orders Hemoglobin A1c 5 Months R73.02 - Impaired glucose tolerance (oral) Vitamin B12 and Folate 5 Months K21.9 - Gastro-esophageal reflux disease without esophagitis Vitamin D 25-OH Total 5 Months K21.9 - Gastro-esophageal reflux disease without esophagitis Basic Metabolic Panel 1 Month H26.9 - Unspecified cataract Complete Blood Count Auto Diff 1 Month H26.9 - Unspecified cataract Pneumococcal 20 Immunization Today Z23 - Encounter for immunization Comprehensive Met. Panel 5 Months R73.02 - Impaired glucose tolerance (oral) Lipid Panel 5 Months E78.00 - Pure hypercholesterolemia, unspecified Thyroid Stimulating Hormone 5 Months E78.00 - Pure hypercholesterolemia, unspecified Free T4 (Free Thyroxine) 5 Months E78.00 - Pure hypercholesterolemia, unspecified Complete Blood Count Auto Diff 5 Months E78.00 - Pure hypercholesterolemia, unspecified ECG 12 lead EKG 1 Month H26.9 - Unspecified cataract Referrals Speech and Hearing Referral H93.19 - Tinnitus, unspecified ear Medications: New pneumoc 20-noris conj-dip cr(PF) 0.5 mL IM ONCE 0.5 mL 0RF Z23 - Encounter for immunization Coding Level of Care Code Est Pt Prev Care >65y(74122) Diagnoses Annual physical exam Z00.00 Hypercholesterolemia E78.00 Gastroesophageal reflux disease without esophagitis K21.9 Esophagitis presence: without esophagitis Impaired glucose tolerance R73.02 Generalized anxiety disorder F41.1 Cataract H26.9 Primary insomnia F51.01 Insomnia type: primary Tinnitus of both ears H93.13 Laterality: bilateral
== END 2023-04-27 17:02 | disposition home or self-care (01) ==
PROVIDERS: Visit Provider Internal Medicine
DX: Z00.00 Encounter for general adult medical examination without abnormal findings (principal); E78.00 Pure hypercholesterolemia, unspecified; K21.9 Gastro-esophageal reflux disease without esophagitis; Z23 Encounter for immunization; R73.02 Impaired glucose tolerance (oral); F41.1 Generalized anxiety disorder; H26.9 Unspecified cataract; F51.01 Primary insomnia; H93.13 Tinnitus, bilateral
CPT/HCPCS: 90471; 90677; 99397

== ENCOUNTER 2023-05-24 06:17 | Outpatient (REF) | payer OTHER, SELFPAY ==
[2023-05-24 12:11] LABS: Basophils Absolute Auto 0.1 X10*3/uL (0.0-0.2); Basophils Percent Auto 0.9 % (0-2); Eosinophils Absolute Auto 0.1 X10*3/uL (0.0-0.4); Eosinophils Percent Auto 1.3 % (0-4); Hematocrit 42.4 % (37.0-47.0); Hemoglobin 13.8 g/dl (12.0-16.0); Imm Gran Abs Auto 0.02 X10*3/uL (0.00-0.03); Imm Gran Pct Auto 0.4 % (0.0-0.4); Lymphocytes Absolute Auto 1.8 X10*3/uL (1.2-4.9); Lymphocytes Percent Auto 32.8 % (20-40); MANUAL DIFF FLAG NO; Mean Corpuscular HGB Conc 32.5 g/dl (31.0-35.0); Mean Corpuscular Hemoglobin 28.6 pg (27.0-33.0); Mean Corpuscular Volume 87.8 fL (80.0-98.0); Mean Platelet Volume 9.3 fL (9.4-12.3); Monocytes Absolute Auto 0.5 X10*3/uL (0.1-1.2); Monocytes Percent Auto 8.6 % (2-11); Platelet Count 319 X10*3/uL (160-400); Red Blood Count 4.83 X10*6/uL (4.20-5.50); Red Cell Distribution Width 13.4 % (11.0-16.0); White Blood Count 5.3 X10*3/uL (4.8-10.8)
[2023-05-24 12:56] LABS: Anion Gap 11 (12-20); Blood Urea Nitrogen 16 mg/dL (9-16); Calcium 9.2 mg/dL (8.4-10.2); Carbon Dioxide 29 mmol/L (22-29); Chloride 106 mmol/L (96-108); Estimated Glomerular Filt Rate > 60; Glucose Random 92 mg/dL (60-115); Potassium 4.1 mmol/L (3.3-5.1); Sodium 142 mmol/L (135-145)
== END 2023-05-24 06:18 | disposition home or self-care (01) ==
LOC: HO.HMGCLDS 06:17
PROVIDERS: PCP Internal Medicine; Visit Provider Internal Medicine
DX: H26.9 Unspecified cataract (principal)
CPT/HCPCS: 36415; 80048; 85025

== ENCOUNTER 2023-05-30 14:00 | Outpatient (AMB) | payer OTHER, SELFPAY ==
[2023-05-30 14:02] VITALS: BP 130/62; PULSE 74; O2SAT 98; BMI 24.2
--- NOTE | 2023-05-30 14:02 | A.OFFPC_ITS ---
Vital Signs 05/30/23 14:02 Height 5 ft 1 in Weight 128 lb BMI 24.2 BP 130/62 Blood Pressure Location Lt brachial Position Sitting Pulse 74 Pulse Source Pulse Oximeter Pulse Oximetry (%) 98 Oxygen Delivery Method Room Air Intake Visit Reasons: Pre-Op for surgery on 06/20/23 Allergies bupropion [From Wellbutrin] Allergy (Unknown, Verified 05/30/23 14:02) Hives, Rash, Dysphagia Medication List - Last Reconciled 05/30/23 by Pam Harrington MD famotidine (Pepcid) 20 mg PO DAILY fluoxetine 20 mg PO DAILY simvastatin 10 mg PO BEDTIME 90 days Tobacco use date assessed: 05/30/23 Fall risk assessment: No Falls in past year Last assessed Fall Risk: 05/30/23 Dental Screening Dental Screen Date: 05/30/23 Did you have a dental visit in the last 12 months?: Yes Did you have a dental problem in the last 6 months where you did not have access to dental care?: No Was dental information given to patient?: Patient has dentist HPI Pre-Op for surgery on 06/20/23 HPI Details 68-year-old female with a history of imp aired glucose tolerance GERD hypercholesterolemia generalized anxiety disorder coming in for preoperative evaluation for cataract extraction under Dr. Bipin herring. Patient is scheduled 06/20/2023. Right eye. neck swollen gland R neck area, sore throat sunday- no fevers and states getting better, had mild coughing, no sob, feels tired,, no cp, has reflux. [facility], [facility] Medical History (Updated 05/30/23 @ 14:17 by Pam Harrington MD) Breast cancer screening Osteopenia Urge incontinence Renal calculi Thyroid nodule Impaired glucose tolerance Vitamin B12 deficiency Vitamin D deficiency GERD (gastroesophageal reflux disease) Hypercholesterolemia Osteoporosis Surgical History H/O exploratory laparotomy History of section Family History (Updated 11/02/22 @ 15:54 by Cydney Martinez CMA) Father Myocardial infarction Son Substance abuse Brother Heart problem Social History (Updated 04/27/23 @ 16:32 by Pam Harrington MD) Housing: House Alcohol intake: current Alcohol intake frequency: holidays/special occasions only Comment: holidays 1-2 drinks Patient Tobacco Use Status: Former Tobacco user Tobacco use type: Cigarette Years Smoked: stopped 20+ years old e-Cigarette/Vaping Use: Never Used Second Hand Smoke Exposure: No Current occupational status: employed Cognitive needs: No Hearing needs: No Vision needs: Yes Questionnaire PHQ-9 Over the last 2 weeks, how often have you been bothered by any of the following problems? 1. Little interest or pleasure in doing things: not at all 2. Feeling down, depressed, or hopeless: not at all 3. Trouble falling or staying asleep, or sleeping too much: not at all 4. Feeling tired or having little energy: not at all 5. Poor appetite or overeating: not at all 6. Feeling bad about yourself - or that you are a failure or have let yourself or your family down: not at all 7. Trouble concentrating on things, such as reading the newspaper or watching television: not at all 8. Moving or speaking so slowly that other people could have noticed. Or the opposite - being so fidgety or restless that you have been moving around a lot more than usual: not at all 9. Thoughts that you would be better off or of hurting yourself in some way: not at all Total score: 0 Depression Screening Interpretation: Negative Depression Screening Done: Yes Source: Developed by Drs. Dani Lee, Nelly Sierra, Zachary Saleem and colleagues, with an educational joleen from [employer]. Thrive Questionnaire Date Thrive assessed: 05/30/23 I am a: Patient What is your living situation today?: I have a steady place to live Within the past 12 months, did the food you bought not last and you didn't have the money to get more?: Never true Within the past 12 months, did you worry whether your food would run out before you got money to buy more?: Never true Do you have trouble paying for medicines?: No Do you have trouble getting transportation to medical appointments?: No Do you have trouble paying your heating and electricity bill?: No Do you have trouble taking care of your child, family member or friend?: No Do you have trouble with day-to-day activities such as bathing, preparing meals, shopping, managing finances, etc.?: No Are you currently unemployed and looking for a job?: No Are you interested in more education?: No Currently or been in a relationship where the following occur: no concerns reported THRIVE Score: 0 AUDIT C Alcohol Use Questionnaire (AUDIT-C) 1. How often do you have a drink containing alcohol?: 2-4 times a month 2. How many drinks containing alcohol do you have on a typical day when you are drinking?: 1 or 2 3. How often do you have six or more drinks on one occasion?: Never Total Score: 2 JOANNE-7 AMB Questionnaire JOANNE-7 Date JOANNE - 7 assessed: 05/30/23 Feeling nervous, anxious, or on edge: 0 = Not at all Not being able to stop or control worryin = Not at all Worrying too much about different things: 0 = Not at all Trouble relaxin = Not at all Being so restless that it is hard to sit still: 0 = Not at all Becoming easily annoyed or irritable: 0 = Not at all Feeling afraid as if something awful might happen: 0 = Not at all Total JOANNE-7 score (0-4 normal; 5-9 mild; 10-14 moderate; 15-21 severe): 0 Source: Developed by Drs. Dani Lee, Nelly Sierra, Zachary Saleem and colleagues, with an educational joleen from [employer]. Review of Systems Const Denies poor appetite and Denies weakness Eyes Denies no additional complaints ENT Reports Normal hearing present, Denies dizziness, Denies nasal congestion, Denies tinnitus and Denies sore throat Card Denies chest pain, Denies syncope, Denies rapid heart rate and Denies dyspnea Resp Denies cough and Denies dyspnea GI Denies change in stool character, Reports constipation, Denies diarrhea, Denies nausea and Denies vomiting Denies urinary frequency, Denies difficulty voiding and Denies dysuria Neuro Reports Normal hearing present, Denies confusion, Denies dizziness, Denies syncope and Denies weakness Psych Denies confusion Physical exam (Primary Care) Vital Signs: Last Vital Signs Pulse 74 05/30/23 14:02 BP 130/62 05/30/23 14:02 Pulse Ox 98 05/30/23 14:02 Oxygen Delivery Method Room Air 05/30/23 14:02 BMI result Body Mass Index 24.2 Tobacco/Smoking Status: Tobacco use Status Tobacco use date assessed 05/30/23 05/30/23 14:08 Patient Tobacco Use Status Former Tobacco user 05/30/23 14:08 Tobacco use type Cigarette 05/30/23 14:08 e-Cigarette/Vaping Use Never Used 05/30/23 14:08 PHQ-9: PHQ-9 Score PHQ-9: Total score 0 05/30/23 14:08 Depression Screening Interpretation: Negative Thrive Assessment: Date of Thrive Assessment Date Thrive assessed 05/30/23 05/30/23 14:08 Currently or been in a relationship where the following occur: no concerns reported Const General: No confusion Orientation/consciousness: No confusion Eyes Conjunctivae: conjunctivae normal Resp Auscultation: clear to auscultation bilaterally Cardio Rate: regular rate Rhythm: regular rhythm GI Inspection: Yes normal to inspection Neuro General: No confusion Cranial nerves: Yes Normal hearing present Extrem General: Yes normal to inspection and No edema Assessment and Plan Assessment & Plan (1) Preop exam for internal medicine: Code(s): Z01.818 - Encounter for other preprocedural examination Plan: Blood work evaluated. Presently patient is low risk for any cardiac complication . No further workup needed at this time and may proceed with the contemplated procedure. Thank you very much for letting me participate the care of this patient. (2) Cataract: Code(s): H26.9 - Unspecified cataract Plan: Schedule for cataract surgery 06/20/2023 right eye 1st (3) Hypercholesterolemia: Code(s): E78.00 - Pure hypercholesterolemia, unspecified Plan: Avoid fried foods, chicken skin, eggs, butter margarine, pastries and meat. Be it pork or beef they have a lot of cholesterol LDL goal of less than 130 and triglyceride of less than 150 presently on simvastatin 10 mg Vit (4) GERD (gastroesophageal reflux disease): Code(s): K21.9 - Gastro-esophageal reflux disease without esophagitis Qualifiers: Esophagitis presence: without esophagitis Qualified Code(s): K21.9 - Ga stro-esophageal reflux disease without esophagitis Plan: Avoid the foods that causes that usually spicy foods, tomato products, juices, coffee, soda and foods that your sensitive to. After eating do not lie down, allow 3-4 hours before in lie down. And keep the head of bed above 30 degrees to avoid the acid from going up. (5) Impaired glucose tolerance: Code(s): R73.02 - Impaired glucose tolerance (oral) Plan: Decrease the amount of carbohydrate intake, pasta, bread, rice and potatoes are all sugar and that is aside from all the sweet stuff, remember that fruits are good but they are Sweet also. (6) Generalized anxiety disorder: Comment: Follows up with the therapist(private) Code(s): F41.1 - Generalized anxiety disorder Plan: Continue with present medication Coding Level of Care Code Est Pt Level 4 (45342) Diagnoses Preop exam for internal medicine Z01.818 Cataract H26.9 Hypercholesterolemia E78.00 Gastroesophageal reflux disease without esophagitis K21.9 Esophagitis presence: without esophagitis Impaired glucose tolerance R73.02 Generalized anxiety disorder F41.1
== END 2023-05-30 14:30 | disposition home or self-care (01) ==
PROVIDERS: PCP Internal Medicine; Visit Provider Internal Medicine
DX: Z01.818 Encounter for other preprocedural examination (principal); H26.9 Unspecified cataract; E78.00 Pure hypercholesterolemia, unspecified; K21.9 Gastro-esophageal reflux disease without esophagitis; R73.02 Impaired glucose tolerance (oral); F41.1 Generalized anxiety disorder
CPT/HCPCS: 99214

== ENCOUNTER 2024-04-17 06:11 | Outpatient (REF) | payer OTHER, SELFPAY ==
--- OUTSIDE RECORDS SUMMARY | 2024-04-17 06:13 | XMS_ITS | Patient Health Record ---
Author Organization [facility] Address [address] [place] [address] Care Team Providers Care Topographical Surveyor Name Role Phone Po Pam MAC Primary Care Provider Jake Iniguez Jr Unavailable ALLERGIES Allergen (clinical drug ingredient) Drug/Non Drug Allergy documented on EMR Reaction Allergy Type Onset Date Status Wellbutrin (uncoded) Unknown Allergy Active REASON FOR REFERRAL No Information MEDICATIONS Medication SIG (Take, Route, Fr equency, Duration) Notes Start Date End Date Status Famotidine 10 MG 1 tablet as needed O rally Twice a day Active Simvastatin 10 MG 2 tablets in the reyna dave Orally Once a day for 30 day(s) Active FLUoxetine HCl 20mg 1 tablet in the morn ing Orally Once a day Active Flonase 50 MCG/DOSE 1 spray in each nost ril Nasally Once a day for 30 day(s) Active IMMUNIZATIONS Vaccine Route Administration Date Status Comme nts Influenza Unknown 03/13/2018 Administered Influenza Unknown 01/17/2022 Administered SOCIAL HISTORY Sex Assigned At : Social History Observation Description Sex Assigned At Unknown PROBLEMS Problem Type ICD Code Onset Dates Problem Status W/U Status Risk SNOMED Code Notes Problem Colon cancer screening (Z12.11) Active confirmed 098472917 Problem Esophageal reflux (K21.9) Active confirmed Esophageal reflux (026749212) Problem Other dysphagia (R13.19) Active confirmed 04792329 Problem Dysphagia (R13.10) Active confirmed Dys phagia (62680808) Problem Gastroesophageal reflux disease without esophagitis (K21.9) Active confirmed 695958100 Problem Gastroesophageal reflux disease, unspecified whether esophagitis present (K21.9) Active confirmed [id number] PLAN OF TREATMENT Future Test Test Name Order Date UPPER GI ENDOSCOPY 11/18/2015 COLONOSCOPY 09/20/2018 UPPER GI ENDOSCOPY 08/14/2022 Insurance Providers Payer Name Payer Address Payer Phone Subscriber Number Group Number Insured Name Patient Relationship to Insured Coverage Start Date Coverage End Date [facility] [address] [place] [phone] [id number] BER[employer]A SUBRAMAN[employer] Self - patient is the insured MEDICAL (GENERAL) HISTORY Medical History History ICD Code Colonoscopy, 2008, hyperplastic polyp Depression Reflux disease Denies RI,DM,CVA,Lung disease,renal dise ase high cholesterol Surgical History Surgery Date(Month/Year) section x 3 removal of scar tissue cyst removal
[2024-04-17 09:50] LABS: MANUAL DIFF FLAG NO
[2024-04-17 10:03] LABS: Basophils Absolute Auto 0.1 X10*3/uL (0.0-0.2); Basophils Percent Auto 1.3 % (0-2); Eosinophils Absolute Auto 0.1 X10*3/uL (0.0-0.4); Eosinophils Percent Auto 1.3 % (0-4); Hematocrit 42.8 % (37.0-47.0); Hemoglobin 13.9 g/dl (12.0-16.0); Imm Gran Abs Auto 0.01 X10*3/uL (0.00-0.03); Imm Gran Pct Auto 0.2 % (0.0-0.4); Lymphocytes Absolute Auto 1.4 X10*3/uL (1.2-4.9); Lymphocytes Percent Auto 29.4 % (20-40); Mean Corpuscular HGB Conc 32.5 g/dl (31.0-35.0); Mean Corpuscular Hemoglobin 28.5 pg (27.0-33.0); Mean Corpuscular Volume 87.9 fL (80.0-98.0); Mean Platelet Volume 9.3 fL (9.4-12.3); Monocytes Absolute Auto 0.3 X10*3/uL (0.1-1.2); Monocytes Percent Auto 7.4 % (2-11); Neutrophils Absolute Auto 2.8 x10*3/uL (2.0-8.3); Neutrophils Percent Auto 60.4 % (45-73); Platelet Count 329 X10*3/uL (160-400); Red Blood Count 4.87 X10*6/uL (4.20-5.50); Red Cell Distribution Width 13.9 % (11.0-16.0); White Blood Count 4.6 X10*3/uL (4.8-10.8)
[2024-04-17 10:19] LABS: Estimated Average Glucose 108 mg/dL; Hemoglobin A1C 132.2338 umol/L; Hemoglobin A1c % 5.4 % (<6.0); Total Hemoglobin (HGBA1C) 3718.8531 umol/L
[2024-04-17 11:02] LABS: Vitamin B12 353 pg/mL (200-900)
[2024-04-17 11:20] LABS: Alanine Aminotransferase 17 U/L (0-31); Albumin Level 4.1 g/dL (3.5-5.0); Alkaline Phosphatase 82 U/L (39-117); Anion Gap 9 (12-20); Aspartate Amino Transferase 23 U/L (5-31); Bilirubin Total 0.5 mg/dL (0.0-1.0); Blood Urea Nitrogen 14 mg/dL (9-16); Carbon Dioxide 29 mmol/L (22-29); Chloride 111 mmol/L (96-108); Cholesterol 161 mg/dL (<200); Estimated Glomerular Filt Rate > 60; Glucose Random 91 mg/dL (60-115); HDL Cholesterol 36 mg/dL (>40); LDL Cholesterol Calculated 104 mg/dL (<100); Potassium 5.2 mmol/L (3.3-5.1); Sodium 144 mmol/L (135-145); Total Protein 7.3 g/dL (6.5-8.0); Triglycerides 107 mg/dL (<150)
[2024-04-17 11:39] LABS: Free T4 (Free Thyroxine) 0.93 ng/dL (0.71-1.85); Thyroid Stimulating Hormone 5.75 uIU/mL (0.32-4.0); Vitamin D 25-OH Total 28.8 ng/mL (>30)
== END 2024-04-17 06:12 | disposition home or self-care (01) ==
LOC: HO.HMGCLDS 06:11
PROVIDERS: PCP Internal Medicine; Visit Provider Internal Medicine
DX: R73.02 Impaired glucose tolerance (oral) (principal); E78.00 Pure hypercholesterolemia, unspecified; K21.9 Gastro-esophageal reflux disease without esophagitis
CPT/HCPCS: 36415; 80053; 80061; 82306; 82607; 82746; 83036; 84439; 84443; 85025

== ENCOUNTER 2024-04-28 15:00 | Outpatient (AMB) | payer OTHER, SELFPAY ==
[2024-04-28 15:07] VITALS: BP 132/68; PULSE 77; O2SAT 97; BMI 23.4
--- NOTE | 2024-04-28 15:07 | A.OFFPC_ITS ---
Vital Signs 04/28/24 15:07 Height 5 ft 1 in Weight 124 lb BMI 23.4 BP 132/68 Blood Pressure Location Lt brachial Position Sitting Pulse 77 Pulse Source Pulse Oximeter Pulse Oximetry (%) 97 Oxygen Delivery Method Room Air Intake Visit Reasons: pe Allergies bupropion [From Wellbutrin] Allergy (Unknown, Verified 04/28/24 15:07) Hives, Rash, Dysphagia Medication List - Last Reconciled 04/28/24 by Pam Harrington MD famotidine (Pepcid) 20 mg PO DAILY fluoxetine 20 mg PO DAILY [Pre and Probiotic PO] simvastatin 10 mg PO BEDTIME 90 days Tobacco use date assessed: 05/30/23 Fall risk assessment: No Falls in past year Last assessed Fall Risk: 04/28/24 Dental Screening Dental Screen Date: 05/30/23 HPI pe HPI Details The patient is a 69-year-old female presenting with a follow-up visit after cataract surgery, management of tinnitus, and for hypertension assessment. The patient underwent successful cataract surgery with Dr. Finn, reporting no postoperative issues. Regarding tinnitus, the patient experiences constant ringing and has undergone a previous hearing test indicating hearing loss. A hearing aid was recommended but not yet pursued. There is a history of essential hypertension, currently well-managed. No new medications or allergies aside from bupropion sensitivity. The patient describes episodes of urinary urgency, occasionally leading to minor leakage, and experiences recurrent swollen glands lasting a few hours to a day. Blood work indicated a mildly elevated potassium level, 5.2, possibly dietary-related, and slightly low Vitamin D at 28.8, common in the geographic area. No chest pain or dizziness was reported. Prior thyroid ultrasound in 2021 was mentioned without notable current symptoms affecting swallowing. The patient demonstrates healthy bowel habits, with occurrences of GERD managed with famotidine, though escalation to omeprazole was considered. Alcohol consumption is rare, less than annually, and non-smoker status is confirmed, with no recreational drug use. - Blood pressure monitored: currently re ported as very good - Mammogram due for scheduling - Bone density screening to be arranged - No recent alcohol use; occasional duri ng holidays - Ceased smoking - Discussion on reducing caffeine to man age urinary symptoms - Previous flu and pneumonia vaccination s confirmed - Shingles vaccination encouraged - Vitamin D supplementation advised at 2 000 IU - Diet discussion including reducing hig h-potassium foods - Physical activity and healthy eating e mphasized - Alcohol consumption: infrequently, pre dominantly during holidays - Smoking: ceased completely - No recreational drug use reported - Adjustments in caffeine intake to arturo ge urinary symptoms - Diet modifications suggested to contro l potassium levels - Ears/Nose/Throat: Reports tinnitus, de nies recent dizziness - Cardiovascular: Denies chest pain - Gastrointestinal: Reports GERD, good b owel movements, occasional urgency - Neurological: Denies dizziness, report s previous hearing loss - Endocrine: Reports past swollen glands - Blood test: Mildly elevated potassium at 5.2, normal reference 3.5-5.1 - White blood cell count: Slightly low - Hemoglobin and platelet counts: Normal - Vitamin D: Mildly low at 28.8 [facility] Medical History (Updated 04/28/24 @ 15:41 by Pam Harrington MD) Osteopenia Breast cancer screening Urge incontinence Renal calculi Thyroid nodule Impaired glucose tolerance Vitamin B12 deficiency Vitamin D deficiency GERD (gastroesophageal reflux disease) Hypercholesterolemia Osteoporosis Surgical History H/O exploratory laparotomy History of section Family History (Updated 11/02/22 @ 15:54 by Cydney Martinez CMA) Father Myocardial infarction Son Substance abuse Brother Heart problem Social History (Updated 04/27/23 @ 16:32 by Pam Harrington MD) Housing: House Alcohol intake: current Alcohol intake frequency: holidays/special occasions only Comment: holidays 1-2 drinks Patient Tobacco Use Status: Former Tobacco user Tobacco use type: Cigarette Years Smoked: stopped 20+ years old e-Cigarette/Vaping Use: Never Used Second Hand Smoke Exposure: No Current occupational status: employed Cognitive needs: No Hearing needs: No Vision needs: Yes Questionnaire PHQ-9 Over the last 2 weeks, how often have you been bothered by any of the following problems? 1. Little interest or pleasure in doing things: several days 2. Feeling down, depressed, or hopeless: several days 3. Trouble falling or staying asleep, or sleeping too much: nearly every day 4. Feeling tired or having little energy: nearly every day 5. Poor appetite or overeating: not at all 6. Feeling bad about yourself - or that you are a failure or have let yourself or your family down: not at all 7. Trouble concentrating on things, such as reading the newspaper or watching television: not at all 8. Moving or speaking so slowly that other people could have noticed. Or the opposite - being so fidgety or restless that you have been moving around a lot more than usual: not at all 9. Thoughts that you would be better off or of hurting yourself in some way: not at all Total score: 8 Depression Screening Interpretation: Positive Depression Screening Done: Yes 10373 - PHQ-9 Billing: Yes Source: Developed by Drs. Dani Lee, Nelly Sierra, Zachary Saleem and colleagues, with an educational joleen from [employer]. Thrive Questionnaire Date Thrive assessed: 04/28/24 I am a: Patient What is your living situation today?: I have a steady place to live Within the past 12 months, did the food you bought not last and you didn't have the money to get more?: Never true Within the past 12 months, did you worry whether your food would run out before you got money to buy more?: Never true Do you have trouble paying for medicines?: No Do you have trouble getting transportation to medical appointments?: No Do you have trouble paying your heating and electricity bill?: No Do you have trouble taking care of your child, family member or friend?: No Do you have trouble with day-to-day activities such as bathing, preparing meals, shopping, managing finances, etc.?: No Are you currently unemployed and looking for a job?: No Are you interested in more education?: No Please select the resources that you would like help with: None Currently or been in a relationship where the following occur: No concerns reported THRIVE Score: 0 AUDIT C Alcohol Use Questionnaire (AUDIT-C) 1. How often do you have a drink containing alcohol?: Monthly or less 2. How many drinks containing alcohol do you have on a typical day when you are drinking?: 1 or 2 3. How often do you have six or more drinks on one occasion?: Never Total Score: 1 JOANNE-7 AMB Questionnaire JOANNE-7 Date JOANNE - 7 assessed: 04/28/24 Feeling nervous, anxious, or on edge: 0 = Not at all Not being able to stop or control worryin = Not at all Worrying too much about different things: 0 = Not at all Trouble relaxin = Not at all Being so restless that it is hard to sit still: 0 = Not at all Becoming easily annoyed or irritable: 0 = Not at all Feeling afraid as if something awful might happen: 0 = Not at all Total JOANNE-7 score (0-4 normal; 5-9 mild; 10-14 moderate; 15-21 severe): 0 Source: Developed by Drs. Dani Lee, Nelly Sierra, Zachary Saleem and colleagues, with an educational joleen from [employer]. Review of Systems Const Denies poor appetite and Denies weakness Eyes Denies no additional complaints ENT Reports Normal hearing present, Denies dizziness, Denies nasal congestion, Denies tinnitus and Denies sore throat Card Denies chest pain, Denies syncope, Denies rapid heart rate and Denies dyspnea Resp Denies cough and Denies dyspnea GI Denies change in stool character, Reports constipation, Denies diarrhea, Denies nausea and Denies vomiting Denies urinary frequency, Denies difficulty voiding and Denies dysuria Neuro Reports Normal hearing present, Denies confusion, Denies dizziness, Denies syncope and Denies weakness Psych Denies confusion Physical exam (Primary Care) Vital Signs: Last Vital Signs Pulse 77 04/28/24 15:07 BP 132/68 04/28/24 15:07 Pulse Ox 97 04/28/24 15:07 Oxygen Delivery Method Room Air 04/28/24 15:07 BMI result Body Mass Index 23.4 Tobacco/Smoking Status: Tobacco use Status Tobacco use date assessed 05/30/23 04/28/24 15:08 Patient Tobacco Use Status Former Tobacco user 04/28/24 15:08 Tobacco use type Cigarette 04/28/24 15:08 e-Cigarette/Vaping Use Never Used 04/28/24 15:08 PHQ-9: PHQ-9 Score PHQ-9: Total score 8 04/28/24 17:25 Depression Screening Interpretation: Positive Thrive Assessment: Date of Thrive Assessment Date Thrive assessed 04/28/24 04/28/24 15:08 Currently or been in a relationship where the following occur: No concerns reported Const General: No confusion Orientation/consciousness: No confusion HENMT Head: Yes normocephalic Ears: external ears normal and TM's normal bilaterally Face and sinus: Yes normal facial exam Mouth: moist mucous membranes Throat: Yes tonsils normal Eyes Conjunctivae: conjunctivae normal Pupils: Equal, round and reactive pupils present and Pupil accommodation reflex normal Direct Ophthalmoscopy: normal light reflex Neck Neck: No lymphadenopathy Thyroid: Thyroid normal Chest Chest palpation & inspection: normal inspection of the chest Resp Effort & Inspection: normal respiratory effort and no audible wheezes Auscultation: clear to auscultation bilaterally, no crackles, no wheezes and lung sounds not diminished Cardio Rate: regular rate Rhythm: regular rhythm Peripheral pulses: radial pulses present and dorsalis pedis present GI Palpation (GI): no masses Auscultation: normal bowel sounds and normoactive bowel sounds Rectal Exam - Female: deferred Skin General skin exam: no rashes or lesions noted Rashes: no rashes Neuro General: No confusion Cranial nerves: Yes Equal, round and reactive pupils present and Yes Normal hearing present Cognition (Neuro): normal cognition Gait exam (Neuro): Normal gait present Motor exam (neuro): 5/5 motor strength present throughout Deep tendon reflexes (DTR's): Right brachioradialis reflex intensity grade: 2+, Left brachioradialis reflex intensity grade: 2+, Right patellar reflex intensity grade: 2+ and Left patellar reflex intensity grade: 2+ Extrem General: No edema Coding Level of Care Code Est Pt Prev Care >65y(97948) Diagnoses Annual physical exam Z00.00 Hypercholesterolemia E78.00 Impaired glucose tolerance R73.02 Gastroesophageal reflux disease without esophagitis K21.9 Esophagitis presence: without esophagitis Generalized anxiety disorder F41.1 Osteopenia M85.80 Breast cancer screening by mammogram Z12.31 Urge incontinence N39.41 Thyroid nodule E04.1 Additional Codes PHQ-9 - 46539 - PHQ-9 Billing: Yes ([id number]) Assessment & Plan Assessment & Plan (1) Annual physical exam: Code(s): Z00.00 - Encounter for general adult medical examination without abnormal findings Category: Medical (2) Hypercholesterolemia: Code(s): E78.00 - Pure hypercholesterolemia, unspecified Category: Medical (3) Impaired glucose tolerance: Code(s): R73.02 - Impaired glucose tolerance (oral) Category: Medical (4) GERD (gastroesophageal reflux disease): Code(s): K21.9 - Gastro-esophageal reflux disease without esophagitis Category: Medical Qualifiers: Esophagitis presence: without esophagitis Qualified Code(s): K21.9 - Gastro-esophageal reflux disease without esophagitis (5) Generalized anxiety disorder: Comment: Follows up with the therapist(private) Code(s): F41.1 - Generalized anxiety disorder Category: Medical (6) Osteopenia: Comment: July 2021 Code(s): M85.80 - Other specified disorders of bone density and structure, unspecified site Category: Medical (7) Breast cancer screening by mammogram: Code(s): Z12.31 - Encounter for screening mammogram for malignant neoplasm of breast Category: Medical (8) Urge incontinence: Code(s): N39.41 - Urge incontinence Category: Medical (9) Thyroid nodule: Comment: May 2021 Code(s): E04.1 - Nontoxic single thyroid nodule Category: Medical Plan - Continue monitoring blood pressure regularly - Tinnitus management: Consideration of hearing aid in future - GERD: Escalation to omeprazole if symptoms persist - Urinary urgency: Recommendation on reducing caffeine intake - Swollen glands: Ultrasound of thyroid to be repeated - Potassium: Monitor dietary intake, follow-up on potassium levels - Vitamin D: Supplementation prescribed at 2000 IU daily - Screening: Schedule mammogram, bone density test, and repeat blood work in 3 months - Shingles vaccine: Discuss with pharmacy - Healthy lifestyle: Maintain exercise regimen and dietary modifications Patient was informed and verbally consented to the use of an ambient scribe for clinic note documentation during this visit. I discussed with the patient her current status post-cataract surgery and confirmed a good recovery. We conversed about the management of her tinnitus with consideration for future auditory support. Hypertension control was noted as satisfactory. I reviewed the necessity of escalating GERD treatment and advised dietary adjustments to manage potassium levels. We planned further investigation of thyroid changes with another ultrasound. I emphasized the importance of her health maintenance schedule, including bone density and mammogram screenings. The patient was informed about the shingles vaccine availability. Encouragement to continue regular exercise and a balanced diet was provided. - Continue taking prescribed medications as directed - Note any changes in tinnitus and consider hearing aid options - Take omeprazole if GERD symptoms persist - Limit dietary potassium intake - Take Vitamin D supplement of 2000 IU daily - Schedule and attend mammogram and bone density screening - Increase physical activity and maintain a balanced diet - Discuss shingles vaccination with a pharmacy - Follow-up with repeat blood work in 3 months to assess potassium levels and thyroid status - Contact our office with any new or worsening symptoms Orders: Orders MM tomosynthesis screening BI Today Z12.31 - Encounter for screening mammogram for malignant neoplasm of breast Thyroid Stimulating Hormone 3 Months R73.02 - Impaired glucose tolerance (oral) Complete Blood Count Auto Diff 3 Months R73.02 - Impaired glucose tolerance (oral) Comprehensive Met. Panel 3 Months R73.02 - Impaired glucose tolerance (oral) XR DEXA axial skeleton Today M81.0 - Age-related osteoporosis without current pathological fracture, M85.80 - Other specified disorders of bone density and structure, unspecified site US thyroid Today E04.1 - Nontoxic single thyroid nodule Free T4 (Free Thyroxine) 3 Months R73.02 - Impaired glucose tolerance (oral) Vitamin D 25-OH Total 3 Months R73.02 - Impaired glucose tolerance (oral) Medications: New amitriptyline 10 mg PO BEDTIME 30 tabs 0RF H93.13 - Tinnitus, bilateral omeprazole 20 mg PO DAILY 30 caps 2RF K21.9 - Gastro-esophageal reflux disease without esophagitis
== END 2024-04-28 16:04 | disposition home or self-care (01) ==
PROVIDERS: PCP Internal Medicine; Visit Provider Internal Medicine
DX: Z00.00 Encounter for general adult medical examination without abnormal findings (principal); E78.00 Pure hypercholesterolemia, unspecified; R73.02 Impaired glucose tolerance (oral); K21.9 Gastro-esophageal reflux disease without esophagitis; F41.1 Generalized anxiety disorder; M85.80 Other specified disorders of bone density and structure, unspecified site; Z12.31 Encounter for screening mammogram for malignant neoplasm of breast; N39.41 Urge incontinence; E04.1 Nontoxic single thyroid nodule

== ENCOUNTER → 2024-04-28 15:00 | Outpatient (BNVA) | payer OTHER, SELFPAY | PROVIDERS: PCP Internal Medicine; Visit Provider Internal Medicine | DX: Z00.00 Encounter for general adult medical examination without abnormal findings (principal); E78.00 Pure hypercholesterolemia, unspecified; R73.02 Impaired glucose tolerance (oral); K21.9 Gastro-esophageal reflux disease without esophagitis; F41.1 Generalized anxiety disorder; M85.80 Other specified disorders of bone density and structure, unspecified site; N39.41 Urge incontinence; E04.1 Nontoxic single thyroid nodule | CPT/HCPCS: 96127 ==

== ENCOUNTER 2024-07-10 12:38 | Outpatient (REF) | payer MEDICARE, SELFPAY ==
--- NOTE | ~2024-07-10 | US_ITS ---
EXAMINATION: US THYROID HISTORY: E04.1 - Nontoxic single thyroid nodule TECHNIQUE: Real-time grayscale ultrasound imaging was performed and images were reviewed. COMPARISON: Comparison is made with the prior examination dated 05/16/2021. FINDINGS: SIZE: The right thyroid lobe measures 4.5 x 1.2 x 1.6 cm. The left thyroid lobe measures 5.0 x 1.9 x 1.7 cm. The isthmus measures 1 mm. FLOW: Flow to the gland is increased. ECHOGENICITY: The echotexture of the gland is heterogeneous. NODULES: Two nodules are noted in the left thyroid lobe as described below: Nodule #: 1 Location: Upper pole of the left thyroid lobe measuring 7 x 3 x 4 mm Shape: Wider than tall (0 points) Margins: Ill-defined (0 points) Echotexture: Hyperechoic (1 point) Composition: Solid (2 points) Calcifications: Macrocalcifications (1 point) Total points: 4 TIRADS: TR4: Moderately suspicious. Nodule #: 2 Location: Lower pole of the left thyroid lobe measuring 4 x 5 x 5 mm Shape: Round (0 points) Margins: Smooth (0 points) Echotexture: Isoechoic (1 point) Composition: Mostly solid (2 points) Calcifications: None (0 points) Total points: 3 TIRADS: TR3: Mildly suspicious. US/US thyroid IMPRESSION: Subcentimeter left thyroid nodules as described. ACR TI-RADS Guidelines TR1: Benign, No follow-up or biopsy required TR2: Not Suspicious, No biopsy indicated TR3: Mildly Suspicious, FNA if >= 2.5 cm, Follow if >= 1.5 cm TR4: Moderately Suspicious, FNA if >= 1.5 cm, Follow if >= 1.0 cm TR5: Highly Suspicious, FNA if >= 1.0 cm, Follow if >= 0.5 cm Electronically signed by: Dani Rodriguez MD 07/14/2024 07:28 AM EDT
--- NOTE | ~2024-07-10 | MM_ITS ---
EXAMINATION: DXA BONE DENSITY AXIAL HISTORY: Estrogen deficiency TECHNIQUE: [employer] Dual energy absorptiometry (DEXA) of the lumbar spine, total left hip, and femoral neck was performed. COMPARISON: Comparison is made with the prior examination dated 07/15/2021. FINDINGS: The bone mineral density of the lumbar spine is 0.853 with a T-score of -2.7, and a Z-score of -0.8. This represents a BMD change of -6.7% compared to the prior exam. This is statistically significant. The bone mineral density of the left total hip is 0.749 with a T-score of -2.1, and a Z-score of -0.6. This represents BMD change of -0.8% compared to the prior exam. This is not statistically significant. The bone mineral density of the left femoral neck is 0.750 with a T-score of -2.1, and a Z-score of -0.3. This represents BMD change of 0.9% compared to the prior exam. MM/XR DEXA axial skeleton IMPRESSION: Based on bone mineral density, and according to World Health Organization (WHO) criteria, the diagnosis is consistent with osteoporosis. All bone density values are in grams per centimeter squared (g/cm2). Statistically, 68% of repeat scans fall within 1 SD (+/- 0.010 g/cm2 for AP spine L1-L4) and 1 SD (+/- 0.012 g/cm2 for femur total) FRAX is a trademark of the [employer]'s [place] [facility] [employer], a World Health Organization (WHO) Collaborating Center. Electronically signed by: Dani Rodriguez MD 07/11/2024 07:50 AM EST
--- NOTE | ~2024-07-10 | MM_ITS ---
EXAMINATION: MM SCREENING DIGITAL BREAST TOMOSYNTHESIS, BILATERAL CLINICAL INFORMATION: Screening. Asymptomatic. COMPARISON: Mammography: Comparison is made with available priors TECHNIQUE: Digital breast mammography with tomosynthesis is performed in both the craniocaudal and mediolateral oblique views along with computer-aided detection (CAD). FINDINGS: The breasts are heterogeneously dense, which may obscure small masses (ACR BI-RADS breast composition Category c). Bilateral circumscribed oval masses which wax and wane consistent with benign fibrocystic changes and cysts. There are no significant masses, abnormal calcifications, or other abnormalities. MM/MM tomosynthesis screening BI IMPRESSION: No mammographic evidence of malignancy. ASSESSMENT: BI-RADS BI-RADS 2 - Benign Findings RECOMMENDATION: Routine annual mammography screening. 1 year F/U This examination should not preclude the clinical evaluation of a suspicious palpable abnormality. This patient's information was entered into a reminder system with a target due date for their next mammogram. Electronically signed by: Zeina Gunn DO 07/19/2024 04:27 PM EDT
--- OUTSIDE RECORDS SUMMARY | 2024-07-10 15:09 | XMS_ITS | Patient Health Record ---
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 Role Phone Po Pam MAC Primary Care Provider Jake Iniguez Jr Unavailable Allergies Allergen (clinical drug ingredient) Drug/Non Drug Allergy documented on EMR Reaction Allergy Type Onset Date Status Wellbutrin (uncoded) Unknown Allergy Active Reason For Referral No Information Medications Medication SIG (Take, Route, Fr equency, Duration) [...] Once a day for 30 day(s) Active Immunizations Vaccine Route Administration Date Status Comme nts Influenza Unknown 03/13/2018 Administered Influenza Unknown 01/17/2022 Administered Problems Problem Type SNOMED Code ICD Code Onset Dates Problem Status W/U Status Risk Notes Problem 096457989 Colon cancer screening (Z12.11) Active confirmed Problem Esophageal reflux (538865898) Esophageal reflux (K21.9) Active confirmed Problem 84475741 Other dysphagia (R13.19) Active confirmed Problem Dysphagia (66129931) Dysphagia (R13.10) Active confirmed Problem 905724394 Gastroesophageal reflux disease without esophagitis (K21.9) Active confirmed Problem 286831176 Gastroesophageal reflux disease, unspecified whether esophagitis present (K21.9) Active confirmed Plan Of Treatment Future Test Test Name Order Date UPPER GI ENDOSCOPY 11/18/2015 COLONOSCOPY 09/20/2018 UPPER GI ENDOSCOPY 08/14/2022 Insurance Providers Payer Name Payer Address Payer Phone Subscriber Number Group Number Insured Name Patient Relationship to Insured Coverage Start Date Coverage End Date [address] [facility] [place] [phone] [id number] 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
== END 2024-07-10 12:39 | disposition home or self-care (01) ==
LOC: HO.MAMMO 12:38
PROVIDERS: PCP Internal Medicine; Visit Provider Internal Medicine
DX: M81.0 Age-related osteoporosis without current pathological fracture (principal); M85.80 Other specified disorders of bone density and structure, unspecified site; E04.1 Nontoxic single thyroid nodule; Z12.31 Encounter for screening mammogram for malignant neoplasm of breast
CPT/HCPCS: 76536; 77063; 77067; 77080

== ENCOUNTER → 2024-07-10 13:00 | Outpatient (BNV) | payer MEDICARE, SELFPAY | PROVIDERS: PCP Internal Medicine; Visit Provider Radiology Diagnostic Radiology | DX: Z12.31 Encounter for screening mammogram for malignant neoplasm of breast (principal) | CPT/HCPCS: 77063; 77067 ==

== ENCOUNTER 2024-07-18 07:22 | Outpatient (REF) | payer MEDICARE, SELFPAY ==
--- OUTSIDE RECORDS SUMMARY | 2024-07-18 07:24 | XMS_ITS | Patient Health Record ---
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 Name Role Phone Po Pam MAC Primary Care Provider Jake Iniguez Jr Unavailable [phone] Allergies Allergen (clinical drug ingredient) Drug/Non Drug [...] Problem Status W/U Status Risk Notes Problem 208025673 Colon cancer screening (Z12.11) Active confirmed Problem Esophageal reflux (436903129) Esophageal reflux (K21.9) Active confirmed Problem 75373629 Other dysphagia (R13.19) Active confirmed Problem Dysphagia (22819992) Dysphagia (R13.10) Active confirmed Problem 040029160 Gastroesophageal reflux disease without esophagitis (K21.9) Active confirmed Problem 706610506 Gastroesophageal reflux disease, unspecified whether esophagitis present (K21.9) Active confirmed Plan Of Treatment Future Test Test Name Order Date UPPER GI ENDOSCOPY 11/18/2015 COLONOSCOPY 09/20/2018 UPPER GI ENDOSCOPY 08/14/2022 Insurance Providers Payer Name Payer Address Payer Phone Subscriber Number Group Number Insured Name Patient Relationship to Insured Coverage Start Date Coverage End Date [facility] [address] [place] [phone] [id number] BERTHA SUBRAMANIAN Self - patient is the insured Medical (General) History Medical History History ICD Code Colonoscopy, 2008, hyperplastic polyp Depression Reflux disease Denies CT,DM,CVA,Lung disease,renal dise ase high cholesterol Surgical History Surgery Date(Month/Year) section x 3 removal of scar tissue cyst removal
[2024-07-18 09:59] LABS: MANUAL DIFF FLAG NO
[2024-07-18 10:04] LABS: Basophils Absolute Auto 0.1 X10*3/uL (0.0-0.2); Basophils Percent Auto 1.3 % (0-2); Eosinophils Absolute Auto 0.1 X10*3/uL (0.0-0.4); Eosinophils Percent Auto 1.1 % (0-4); Hematocrit 41.8 % (37.0-47.0); Hemoglobin 13.8 g/dl (12.0-16.0); Imm Gran Abs Auto 0.01 X10*3/uL (0.00-0.03); Imm Gran Pct Auto 0.2 % (0.0-0.4); Lymphocytes Absolute Auto 1.7 X10*3/uL (1.2-4.9); Lymphocytes Percent Auto 38.3 % (20-40); Mean Corpuscular Hemoglobin 28.7 pg (27.0-33.0); Mean Corpuscular Volume 86.9 fL (80.0-98.0); Mean Platelet Volume 8.9 fL (9.4-12.3); Monocytes Absolute Auto 0.4 X10*3/uL (0.1-1.2); Monocytes Percent Auto 7.7 % (2-11); Neutrophils Absolute Auto 2.3 x10*3/uL (2.0-8.3); Neutrophils Percent Auto 51.4 % (45-73); Platelet Count 297 X10*3/uL (160-400); Red Blood Count 4.81 X10*6/uL (4.20-5.50); Red Cell Distribution Width 13.5 % (11.0-16.0); White Blood Count 4.5 X10*3/uL (4.8-10.8)
[2024-07-18 10:52] LABS: Alanine Aminotransferase 17 U/L (0-31); Albumin Level 4.1 g/dL (3.5-5.0); Alkaline Phosphatase 73 U/L (39-117); Anion Gap 9 (12-20); Aspartate Amino Transferase 24 U/L (5-31); Bilirubin Total 0.4 mg/dL (0.0-1.0); Blood Urea Nitrogen 17 mg/dL (9-16); Calcium 9.2 mg/dL (8.4-10.2); Carbon Dioxide 28 mmol/L (22-29); Chloride 108 mmol/L (96-108); Estimated Glomerular Filt Rate > 60; Glucose Random 96 mg/dL (60-115); Potassium 4.4 mmol/L (3.3-5.1); Sodium 141 mmol/L (135-145); Total Protein 7.4 g/dL (6.5-8.0)
[2024-07-18 11:11] LABS: Free T4 (Free Thyroxine) 0.84 ng/dL (0.71-1.85); Thyroid Stimulating Hormone 4.92 uIU/mL (0.32-4.0)
== END 2024-07-18 07:23 | disposition home or self-care (01) ==
LOC: HO.HMGCLDS 07:22
PROVIDERS: PCP Internal Medicine; Visit Provider Internal Medicine
DX: R73.02 Impaired glucose tolerance (oral) (principal)
CPT/HCPCS: 36415; 80053; 82306; 84439; 84443; 85025

== ENCOUNTER 2024-07-29 08:35 | Outpatient (AMB) | payer MEDICARE, SELFPAY ==
[2024-07-29 08:46] VITALS: BP 108/62; PULSE 74; O2SAT 98; BMI 23.2
--- NOTE | 2024-07-29 08:46 | MHC.PC.OV ---
Vital Signs 07/29/24 08:46 Height 5 ft 1 in Weight 123 lb BMI 23.2 BP 108/62 Blood Pressure Location Lt brachial Position Sitting Pulse 74 Pulse Source Pulse Oximeter Pulse Oximetry (%) 98 Oxygen Delivery Method Room Air Intake Visit Reasons: 3mth f/u Allergies bupropion [From Wellbutrin] Allergy (Unknown, Verified 07/29/24 08:47) Hives, Rash, Dysphagia Medication List - Last Reconciled 07/29/24 by Pam Harrington MD amitriptyline 10 mg PO BEDTIME cetirizine (Zyrtec) 10 mg PO DAILY PRN fluoxetine 20 mg PO DAILY omeprazole 20 mg PO DAILY [Pre and Probiotic PO] simvastatin 10 mg PO BEDTIME 90 days Tobacco use date assessed: 07/29/24 Fall risk assessment: No Falls in past year Last assessed Fall Risk: 07/29/24 Dental Screening Dental Screen Date: 07/29/24 Did you have a dental visit in the last 12 months?: Yes Did you have a dental problem in the last 6 months where you did not have access to dental care?: No Was dental information given to patient?: Patient has dentist [facility] Medical History (Updated 07/29/24 @ 09:06 by Pam Harrington MD) Preop exam for internal medicine Breast cancer screening by mammogram Osteopenia Breast cancer screening Urge incontinence Renal calculi Thyroid nodule Impaired glucose tolerance Vitamin B12 deficiency Vitamin D deficiency GERD (gastroesophageal reflux disease) Hypercholesterolemia Osteoporosis Surgical History H/O exploratory laparotomy History of section Family History (Updated 11/02/22 @ 15:54 by Cydney Martinez CMA) Father Myocardial infarction Son Substance abuse Brother Heart problem Social History (Updated 04/27/23 @ 16:32 by Pam Harrington MD) Housing: House Alcohol intake: current Alcohol intake frequency: holidays/special occasions only Comment: holidays 1-2 drinks Patient Tobacco Use Status: Former Tobacco user Tobacco use type: Cigarette Years Smoked: stopped 20+ years old e-Cigarette/Vaping Use: Never Used Second Hand Smoke Exposure: No Current occupational status: employed Cognitive needs: No Hearing needs: No Vision needs: Yes Questionnaire PHQ-9 Over the last 2 weeks, how often have you been bothered by any of the following problems? 1. Little interest or pleasure in doing things: several days 2. Feeling down, depressed, or hopeless: several days 3. Trouble falling or staying asleep, or sleeping too much: nearly every day 4. Feeling tired or having little energy: nearly every day 5. Poor appetite or overeating: not at all 6. Feeling bad about yourself - or that you are a failure or have let yourself or your family down: not at all 7. Trouble concentrating on things, such as reading the newspaper or watching television: not at all 8. Moving or speaking so slowly that other people could have noticed. Or the opposite - being so fidgety or restless that you have been moving around a lot more than usual: not at all 9. Thoughts that you would be better off or of hurting yourself in some way: not at all Total score: 8 Depression Screening Interpretation: Positive Depression Screening Done: Yes 97392 - PHQ-9 Billing: Yes Source: Developed by Drs. Dani Lee, Nelly Sierra, Zachary Saleem and colleagues, with an educational joleen from [employer]. Thrive Questionnaire Date Thrive assessed: 07/29/24 I am a: Patient What is your living situation today?: I have a steady place to live Within the past 12 months, did the food you bought not last and you didn't have the money to get more?: Never true Within the past 12 months, did you worry whether your food would run out before you got money to buy more?: Never true Do you have trouble paying for medicines?: No Do you have trouble getting transportation to medical appointments?: No Do you have trouble paying your heating and electricity bill?: No Do you have trouble taking care of your child, family member or friend?: No Do you have trouble with day-to-day activities such as bathing, preparing meals, shopping, managing finances, etc.?: No Are you currently unemployed and looking for a job?: No Are you interested in more education?: No Please select the resources that you would like help with: None Currently or been in a relationship where the following occur: No concerns reported THRIVE Score: 0 AUDIT C Alcohol Use Questionnaire (AUDIT-C) 2. How many drinks containing alcohol do you have on a typical day when you are drinking?: 1 or 2 3. How often do you have six or more drinks on one occasion?: Never Total Score: 0 JOANNE-7 AMB Questionnaire JOANNE-7 Date JOANNE - 7 assessed: 07/29/24 Feeling nervous, anxious, or on edge: 0 = Not at all Not being able to stop or control worryin = Not at all Worrying too much about different things: 0 = Not at all Trouble relaxin = Not at all Being so restless that it is hard to sit still: 0 = Not at all Becoming easily annoyed or irritable: 0 = Not at all Feeling afraid as if something awful might happen: 0 = Not at all Total JOANNE-7 score (0-4 normal; 5-9 mild; 10-14 moderate; 15-21 severe): 0 Source: Developed by Drs. Dani Lee, Nelly Sierra, Zachary Saleem and colleagues, with an educational joleen from [employer]. Physical exam (Primary Care) Vital Signs: Last Vital Signs Pulse 74 07/29/24 08:46 BP 108/62 07/29/24 08:46 Pulse Ox 98 07/29/24 08:46 Oxygen Delivery Method Room Air 07/29/24 08:46 BMI result Body Mass Index 23.2 Tobacco/Smoking Status: Tobacco use Status Tobacco use date assessed 07/29/24 07/29/24 08:51 Patient Tobacco Use Status Former Tobacco user 07/29/24 08:48 Tobacco use type Cigarette 07/29/24 08:48 e-Cigarette/Vaping Use Never Used 07/29/24 08:48 PHQ-9: PHQ-9 Score PHQ-9: Total score 8 07/29/24 08:51 Depression Screening Interpretation: Positive Thrive Assessment: Date of Thrive Assessment Date Thrive assessed 07/29/24 07/29/24 08:48 Currently or been in a relationship where the following occur: No concerns reported Const General: alert; No acute distress Eyes Conjunctivae: conjunctivae normal Resp Auscultation: clear to auscultation bilaterally Cardio Rate: regular rate Rhythm: regular rhythm GI Inspection: Yes normal to inspection Extrem General: Yes normal to inspection and No edema Coding Level of Care Code Est Pt Level 4 (99999) Complex EM visit Add On G2211 Diagnoses Osteopenia M85.80 Hypercholesterolemia E78.00 Gastroesophageal reflux disease without esophagitis K21.9 Esophagitis presence: without esophagitis Impaired glucose tolerance R73.02 Thyroid nodule E04.1 TSH elevation R79.89 Additional Codes PHQ-9 - 55876 - PHQ-9 Billing: Yes ([id number]) Assessment & Plan Assessment & Plan (1) Osteopenia: Comment: July Code(s): M85.80 - Other specified disorders of bone density and structure, unspecified site Category: Medical Plan: Bone density noted with the spine 6% decrease with the hip same. Will continue to follow-up discussed about calcium and vitamin-D. (2) Hypercholesterolemia: Code(s): E78.00 - Pure hypercholesterolemia, unspecified Category: Medical Plan: Avoid fried foods, chicken skin, eggs, butter margarine, pastries and meat. Be it pork or beef they have a lot of cholesterol LDL goal of less than 130 and triglyceride of less than 150 on simvastatin 10 mg at bedtime (3) GERD (gastroesophageal reflux disease): Code(s): K21.9 - Gastro-esophageal reflux disease without esophagitis Category: Medical Qualifiers: Esophagitis presence: without esophagitis Qualified Code(s): K21.9 - Gastro-esophageal reflux disease without esophagitis Plan: Avoid the foods that causes that usually spicy foods, tomato products, juices, coffee, soda and foods that your sensitive to. After eating do not lie down, allow 3-4 hours before in lie down. And keep the head of bed above 30 degrees to avoid the acid from going up. (4) Impaired glucose tolerance: Code(s): R73.02 - Impaired glucose tolerance (oral) Category: Medical Plan: Decrease the amount of carbohydrate intake, pasta, bread, rice and potatoes are all sugar and that is aside from all the sweet stuff, remember that fruits are good but they are Sweet also. (5) Thyroid nodule: Comment: May 2021, July 2024 subcentimeter nodules left Code(s): E04.1 - Nontoxic single thyroid nodule Category: Medical Plan: Subcentimeter nodules. Reassurance (6) TSH elevation: Code(s): R79.89 - Other specified abnormal findings of blood chemistry Category: Medical Plan: Will continue to monitor Plan History of Present Illness The patient is a 69-year-old female presenting for follow-up concerning osteopenia and thyroid nodules. She has a history of osteopenia, with a lumbar spine T-score of -2.7 indicating a 6% decrease in bone density. The left hip has shown no significant change. The management of her condition focuses on calcium and vitamin D supplementation to counteract the loss in bone density. She has also previously been identified with thyroid nodules, with an ultrasound revealing nodules up to 7 mm in size. Current medical guidelines do not necessitate immediate intervention, but surveillance is recommended. This monitoring may be complicated by her planned relocation to [place]. Her hypothyroid condition has a TSH of 4.92, which is an improvement, and she remains on simvastatin 10 mg for hypercholesterolemia. The patient continues to manage gastroesophageal reflux disease and mild leukopenia, which are stable under current treatment regimens. Health Maintenance - Mammogram up to date as of July 2024. - Bone density test performed in July 2024. - Colonoscopy completed in September 2022. - TSH testing confirms mild hypothyroidism, suggesting ongoing monitoring. - Advised on continued calcium and vitamin D supplementation for osteopenia. - Encouraged dietary guidelines to manage hypercholesterolemia with LDL target below 130 mg/dL. - Discussed potential side effects of long-term use of omeprazole in relation to bone health. - Vaccinations current, including pneumonia and tetanus; advised caution with regards to flu, COVID, and RSV. Social History - Planning relocation to [place], specifically the [facility], with potential implications for healthcare follow-up. - Daughter residing locally and due to give soon, with anticipation of becoming a grandmother. - Discussed relocation impact on continuity of care and acquisition of healthcare records. Review of Systems - General: Reports no new systemic symptoms. - Gastrointestinal: Reports regular management of gastroesophageal reflux disease with omeprazole. - Musculoskeletal: Denies acute musculoskeletal pain despite noted osteopenia. - Endocrine: Reports stable thyroid function management with noted mild elevation in TSH. Physical Exam Results - Labs: Normal blood count except for mild leukopenia. Normal electrolyte and renal function. Liver function tests normal. - Tests: Bone density test in July 2024 showing a lumbar spine T-score of -2.7. Thyroid ultrasound showing nodules with sizes 7 mm and 4-5 mm. - Diagnostics: TSH value is 4.92, indicating a mildly elevated level. Plan To manage osteopenia, the patient will continue dietary supplementation with calcium and vitamin D, recognizing the importance of bone density maintenance. I discussed the potential use of bisphosphonates, including alendronate, outlining associated risks and considerations for dental procedures. Surveillance of thyroid nodules will continue based on current sizes with no immediate need for biopsy, given the current guideline recommendations. Continuous monitoring of TSH is advised for hypothyroid tendencies. For hypercholesterolemia, ongoing treatment with simvastatin at 10 mg is considered effective, aligning with cholesterol management goals. The management of gastroesophageal reflux disease includes lifestyle modifications and intermittent use of omeprazole per symptom occurrence. Patient was informed and verbally consented to the use of an ambient scribe for clinic note documentation during this visit. Discussion Notes I reviewed the patient's current conditions and management strategies, focusing on osteopenia and thyroid nodule surveillance. I provided comprehensive details on the implications of bisphosphonate use, including potential risks like osteonecrosis and effects on dental health. I emphasized the importance of calcium and vitamin D supplementation. For thyroid nodules, I conveyed that current sizes warrant monitoring rather than invasive intervention based on guidelines, which I explained thoroughly. I reassured the patient that her mildly elevated TSH requires routine follow-up. I reiterated the continuation of simvastatin for hypercholesterolemia management and discussed strategies to control gastroesophageal reflux, focusing on lifestyle and judicious use of omeprazole. Patient Instructions - Continue calcium and vitamin D supplements as prescribed. - Follow dietary and lifestyle modifications to help manage hypercholesterolemia and gastroesophageal reflux. - Arrange dental evaluation before considering bisphosphonate therapy for osteopenia. - Expect routine surveillance for thyroid nodules; no current intervention needed. - Discuss any side effects of medications or changes in health status at the next appointment. - Ensure records are transferred timely to your new healthcare provider in [place]. - Keep vaccinations up to date, and remain cautious regarding seasonal and viral illnesses. - Contact the pharmacy for prescription refills or queries. - Plan a primary care follow-up visit once relocated, and notify if there are any immediate health changes.
== END 2024-07-29 09:24 | disposition home or self-care (01) ==
LOC: HO.HMCH 08:35
PROVIDERS: PCP Internal Medicine; Visit Provider Internal Medicine
DX: M85.80 Other specified disorders of bone density and structure, unspecified site (principal); E78.00 Pure hypercholesterolemia, unspecified; K21.9 Gastro-esophageal reflux disease without esophagitis; R73.02 Impaired glucose tolerance (oral); E04.1 Nontoxic single thyroid nodule; R79.89 Other specified abnormal findings of blood chemistry

== ENCOUNTER → 2024-07-29 08:35 | Outpatient (BNVA) | payer MEDICARE, SELFPAY | PROVIDERS: PCP Internal Medicine; Visit Provider Internal Medicine | DX: M85.80 Other specified disorders of bone density and structure, unspecified site (principal); E78.00 Pure hypercholesterolemia, unspecified; K21.9 Gastro-esophageal reflux disease without esophagitis; R73.02 Impaired glucose tolerance (oral); E04.1 Nontoxic single thyroid nodule; R79.89 Other specified abnormal findings of blood chemistry | CPT/HCPCS: 96127; 99212 ==